=== PATIENT | female | born 1975 | race Caucasian/White ===

== ENCOUNTER 2017-03-23 15:36 | Observation (INO) | payer BC ==
--- NOTE | 2017-03-23 16:59 | ER Document Report ---
ED Medical Screen (RME) - General Chief Complaint: Chest Pain Stated Complaint: CHEST PAIN,RIGHT ARM NUMBNESS Time Seen by Provider: 03/23/17 16:22 Notes: pt states that she was in a normal state of health when she had the sudden onset of right-sided chest pain and headache. She states she also felt confused and was short of breath. TRAVEL OUTSIDE OF THE [place] IN LAST 30 DAYS: No - Related Data Allergies/Adverse Reactions: Penicillins Allergy (Verified 03/23/17 16:03) Past Medical History - Social History Frequency of alcohol use: None Drug Abuse: None Renal/ Medical History: Denies: Hx Peritoneal Dialysis Physical Exam - Vital signs Vitals: Temp Pulse Resp BP Pulse Ox 99.3 F 86 22 H 133/78 H 97 03/23/17 16:00 03/23/17 16:00 03/23/17 16:00 03/23/17 16:00 03/23/17 16:00 Course - Vital Signs Vital signs: Temp Pulse Resp BP Pulse Ox 99.3 F 86 22 H 133/78 H 97 03/23/17 16:00 03/23/17 16:00 03/23/17 16:00 03/23/17 16:00 03/23/17 16:00
[2017-03-23 17:18] LABS: ABSOLUTE BASOPHILS # (AUTO) 0.1 10^3/uL (0.0-0.2); ABSOLUTE EOSINOPHILS # (AUTO) 0.2 10^3/uL (0.0-0.6); ABSOLUTE MONOCYTES (AUTO) 0.1 10^3/uL (0.1-1.4); BASOPHILS % (AUTO) 1.1 % (0-2); EOSINOPHILS % (AUTO) 3.9 % (0-6); HEMOGLOBIN 13.4 g/dL (12.0-15.5); HGB HCT DIFFERENCE 1.2; LYMPHOCYTES % (AUTO) 37.3 % (13-45); MEAN CORPUSCULAR HEMOGLOBIN 31.3 pg (27.0-33.4); MEAN CORPUSCULAR HGB CONC 34.2 g/dL (32.0-36.0); MEAN CORPUSCULAR VOLUME 91 fl (80-97); MONOCYTES % (AUTO) 2.7 % (3-13); RED BLOOD COUNT 4.27 10^6/uL (3.72-5.28); RED CELL DISTRIBUTION WIDTH 12.4 % (11.5-14.0); WHITE BLOOD COUNT 5.4 10^3/uL (4.0-10.5)
[2017-03-23 17:26] LABS: APPEARANCE,URINE SLIGHTLY-CLOUDY; BILIRUBIN,URINE NEGATIVE (NEGATIVE); GLUCOSE, URINE NEGATIVE (NEGATIVE); KETONES,URINE NEGATIVE (NEGATIVE); LEUKOCYTE ESTERASE,URINE NEGATIVE (NEGATIVE); NITRITE,URINE NEGATIVE (NEGATIVE); PROTEIN,URINE NEGATIVE (NEGATIVE); URINE SPECIFIC GRAVITY 1.024; UROBILINOGEN,URINE NEGATIVE mg/dL (<2.0)
[2017-03-23 17:31] LABS: ALANINE AMINOTRANSFERASE 28 U/L (9-52); ALBUMIN 4.2 g/dL (3.5-5.0); ALKALINE PHOSPHATASE 80 U/L (38-126); ANION GAP 12 (5-19); ASPARTATE AMINO TRANSFERASE 15 U/L (14-36); BILIRUBIN,DIRECT 0.3 mg/dL (0.0-0.4); BILIRUBIN,TOTAL 0.3 mg/dL (0.2-1.3); BLOOD UREA NITROGEN 17 mg/dL (7-20); CALCIUM 9.4 mg/dL (8.4-10.2); CARBON DIOXIDE 30 mmol/L (22-30); CHLORIDE 103 mmol/L (98-107); GLUCOSE 120 mg/dL (75-110); POTASSIUM 4.5 mmol/L (3.6-5.0); SODIUM 144.9 mmol/L (137-145); TOTAL PROTEIN 7.5 g/dL (6.3-8.2)
--- NOTE | 2017-03-23 17:38 | ER Document Report ---
ED General - General Chief Complaint: Chest Pain Stated Complaint: CHEST PAIN,RIGHT ARM NUMBNESS Time Seen by Provider: 03/23/17 16:22 Mode of Arrival: Ambulatory Information source: Patient Notes: 41-year-old female with a history of goiter status post thyroidectomy, presenting to the emergency room after an episode of chest pain and shortness of breath. Patient states that the pain radiated to the right jaw and right arm. She denies any recent fevers, chills, nausea vomiting. TRAVEL OUTSIDE OF THE [place] IN LAST 30 DAYS: No - HPI Onset: Just prior to arrival Onset/Duration: Sudden Quality of pain: Dull Severity: Moderate Pain Level: 2 Associated symptoms: Chest pain, Nausea, Shortness of breath Exacerbated by: Denies Relieved by: Denies Similar symptoms previously: No Recently seen / treated by doctor: No - Related Data Allergies/Adverse Reactions: Penicillins Allergy (Verified 03/23/17 16:03) Past Medical History - General Information source: Patient - Social History Smoking Status: Never Smoker Cigarette use (# per day): No Chew tobacco use (# tins/day): No Frequency of alcohol use: None Drug Abuse: None Lives with: Family Family History: Reviewed & Not Pertinent Patient has suicidal ideation: No Patient has homicidal ideation: No - Past Medical History Cardiac Medical History: Reports: None Pulmonary Medical History: Reports: None Neurological Medical History: Reports: None Endocrine Medical History: Reports: Other - goiter Renal/ Medical History: Denies: Hx Peritoneal Dialysis Past Surgical History: Reports: Other - thyroid Review of Systems - Review of Systems Constitutional: denies: Chills, Fever EENT: No symptoms reported Cardiovascular: See HPI Respiratory: See HPI Gastrointestinal: No symptoms reported Genitourinary: No symptoms reported Female Genitourinary: No symptoms reported Musculoskeletal: No symptoms reported Skin: No symptoms reported Hematologic/Lymphatic: No symptoms reported Neurological/Psychological: No symptoms reported Physical Exam - Vital signs Vitals: Temp Pulse Resp BP Pulse Ox 99.3 F 86 22 H 133/78 H 97 03/23/17 16:00 03/23/17 16:00 03/23/17 16:00 03/23/17 16:00 03/23/17 16:00 Notes: Physical exam: GENERAL: 41-year-old female, alert and oriented 3, no acute distress HEAD: Atraumatic, normocephalic. EYES: Pupils equal round and reactive to light, extraocular movements intact, sclera anicteric, conjunctiva are normal. ENT: TMs normal, nares patent, oropharynx clear without exudates. Moist mucous membranes. NECK: Normal range of motion, supple without obvious mass or JVD. LUNGS: Breath sounds clear to auscultation bilaterally and equal. No wheezes rales or rhonchi. HEART: Regular rate and rhythm without murmurs, rubs or gallops. ABDOMEN: Soft, normoactive bowel sounds. No tenderness to palpation. No guarding, no rebound. No masses appreciated. EXTREMITIES: Normal range of motion, no pitting or edema. No clubbing or cyanosis. NEUROLOGICAL: Cranial nerves II through XII grossly intact. Normal speech, moving all extremities. PSYCH: Normal mood, normal affect. SKIN: Warm, Dry, normal turgor, no rashes or lesions noted. Course - Vital Signs Vital signs: Temp Pulse Resp BP Pulse Ox 99.3 F 86 22 H 133/78 H 97 03/23/17 16:00 03/23/17 16:00 03/23/17 16:00 03/23/17 16:00 03/23/17 16:00 - Laboratory Result Diagrams: 03/23/17 16:50 03/23/17 16:50 Laboratory results interpreted by me: 03/23/17 03/23/17 03/23/17 16:50 16:50 16:50 Monocytes % 2.7 L D-Dimer 0.75 H Glucose 120 H - Diagnostic Test Radiology reviewed: Image reviewed, Reports reviewed - CTA shows no pulmonary emboli - EKG Interpretation by Me EKG shows normal: Sinus rhythm Rate: Normal Rhythm: NSR - vrate 79, no acute st changes Discharge - Discharge Clinical Impression: Chest pain Qualifiers: Chest pain type: unspecified Qualified Code(s): R07.9 - Chest pain, unspecified Condition: Stable Disposition: ADMITTED OBSERVATION Admitting Provider: Hospitalist - Dr Ruvalcaba Unit Admitted: Telemetry
[2017-03-23] MEDS ORDERED: ASPIRIN 81 MG TABLET, CHEWABLE PO ONE (17:39)
[2017-03-23] MEDS ORDERED: METOCLOPRAMIDE HCL INJ/PF 10 MG/2 ML SDV IV ONE (18:30)
[2017-03-23] MEDS ORDERED: DIPHENHYDRAMINE HCL 50 MG/ML VIAL IV ONE (18:30)
--- NOTE | 2017-03-23 18:34 | RADIOLOGY REPORT (SQ) ---
EXAM DESCRIPTION: CT HEAD WITHOUT COMPLETED DATE/TIME: 03/23/2017 6:20 pm REASON FOR STUDY: ams/mari COMPARISON: None. TECHNIQUE: Axial images acquired through the brain without intravenous contrast. Images reviewed wi th bone, brain and subdural windows. Images stored on PACS. All CT scanners at this facility use dose modulation, iterative reconstruction, and/or weight based d osing when appropriate to reduce radiation dose to as low as reasonably achievable (ALARA). [facility]: Dose Right [facility]: CareDose [facility]: Dose Right [facility]: Teradose 4D [facility]: [employer] RADIATION DOSE: Up-to-date CT equipment and radiation dose reduction techniques were employed. CTDIv ol: 64.6 mGy. DLP: 1034 mGy-cm. mGy. LIMITATIONS: None. FINDINGS: VENTRICLES: Normal size and contour. CEREBRUM: No masses. No hemorrhage. No midline shift. No evidence for acute infarction. Normal gra y/white matter differentiation. No areas of low density in the white matter. CEREBELLUM: No masses. No hemorrhage. No alteration of density. No evidence for acute infarction. EXTRAAXIAL SPACES: No fluid collections. No masses. ORBITS AND GLOBE: No intra- or extraconal masses. Normal contour of globe without masses. CALVARIUM: No fracture. PARANASAL SINUSES: No fluid or mucosal thickening. SOFT TISSUES: No mass or hematoma. OTHER: No other significant finding. IMPRESSION: NORMAL BRAIN CT WITHOUT CONTRAST. COMMENT: Quality ID # [id number]: Final reports with documentation of one or more dose reduction techniques (e.g., Automated exposure control, adjustment of the mA and/or kV according to patient size, use of iterative reconstruction technique) TECHNICAL DOCUMENTATION: JOB ID: [id number]- All Rights Reserved
--- NOTE | 2017-03-23 18:38 | RADIOLOGY REPORT (SQ) ---
EXAM DESCRIPTION: CTA CHEST COMPLETED DATE/TIME: 03/23/2017 6:20 pm REASON FOR STUDY: cp COMPARISON: None. TECHNIQUE: CT scan of the chest performed using helical scanning technique with dynamic intravenous contrast injection. Images reviewed with lung, soft tissue and bone windows. Reconstructed coronal and sagittal MPR images reviewed. Additional 3 dimensional post-processing performed to develop Maximal Intensity Projection images (VT P). All images stored on PACS. All CT scanners at this facility use dose modulation, iterative reconstruction, and/or weight based d osing when appropriate to reduce radiation dose to as low as reasonably achievable (ALARA). [facility]: Dose Right [facility]: CareDose [facility]: Dose Right [facility]: Teradose 4D [facility]: [employer] CONTRAST TYPE AND DOSE: contrast/concentration: Isovue 370.00 mg/ml; Total Contrast Delivered: 82.0 ml; Total Saline Delivered: 70.0 ml Contrast bolus optimized for the pulmonary arteries. Not diagnostic for the aorta. RENAL FUNCTION: BUN 17, creatinine 0.80 RADIATION DOSE: Up-to-date CT equipment and radiation dose reduction techniques were employed. CTDIv ol: 29.8 - 33.1 mGy. DLP: 1185 mGy-cm. . LIMITATIONS: The timing of the bolus is inadequate for segmental and subsegmental evaluation. FINDINGS: LUNGS AND PLEURA: No masses, infiltrates, pneumothorax. No pleural effusions, calcificati ons. AORTA AND GREAT VESSELS: No aneurysm. Contrast bolus not optimized for the aorta. HEART: No pericardial effusion. No significant coronary artery calcifications. PULMONARY ARTERIES: No emboli visualized in the main pulmonary arteries or the segmental branches. HILAR AND MEDIASTINAL STRUCTURES: No identified masses or abnormal nodes. HARDWARE: None in the chest. UPPER ABDOMEN: No significant findings. Limited exam. THYROID AND OTHER SOFT TISSUES: No masses. No adenopathy. BONES: No acute or significant finding. 3D MIPS: Confirm above findings. OTHER: No other significant finding. IMPRESSION: No central pulmonary emboli. Due to timing of the contrast bolus smaller vessels are in adequately opacified. COMMENT: Quality ID # [id number]: Final reports with documentation of one or more dose reduction techniques (e.g., Automated exposure control, adjustment of the mA and/or kV according to patient size, use of iterative reconstruction technique) TECHNICAL DOCUMENTATION: JOB ID: [id number]- All Rights Reserved
[2017-03-23] MEDS ORDERED: ACETAMINOPHEN 325 MG TABLET PO PRN (18:42)
[2017-03-23] MEDS ORDERED: NORMAL SALINE 1000 ML 1,000 ML IV PRN (18:42)
[2017-03-23] MEDS ORDERED: ONDANSETRON HCL INJ/PF 4 MG/2 ML SDV IV PRN (18:50)
[2017-03-23] MEDS ORDERED: GLUCAGON,HUMAN RECOMB 1 MG INJ IM PRN (18:52)
[2017-03-23] MEDS ORDERED: INSULIN REG, HUMAN 100 UNIT/ML 3 ML VIAL (PYX) SUBCUT PRN (18:52)
[2017-03-23] MEDS ORDERED: DEXTROSE 50%-WATER 25 GM/50 ML DISP.SYRIN IV PRN ×2 (18:52)
[2017-03-23] MEDS ORDERED: DEXTROSE 40% GEL 15 GM TUBE PO PRN ×2 (18:52)
--- NOTE | 2017-03-23 19:04 | PDOC H&P ---
History of Present Illness Admission Date/PCP: 03/23/17 18:13 Patient complains of: Chest pain History of Present Illness: ROSIE PETERSON is a 41 year old female, history of bipolar depression morbid obesity borderline diabetes mellitus presents to the hospital with chest pain earlier while at work. 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 It is located in the precordium with associated numbness and tingling sensation on the right upper extremity as well as on the face. Patient started to develop headache as well. She was short of breath and hyperventilating. She felt anxious. She was given aspirin which partially relieves the symptoms. There is some sweating but no nausea or vomiting. There is some palpitation but no dizziness or lightheadedness. The patient was brought to the emergency room for evaluation. CT scan of the chest did not reveal any pulmonary embolism. Patient was then referred for observation. There is no cough, sinus congestion, sore throat nor pleurisy. Past Medical History Past Medical History: Medication reconciliation pending verification from the patient's pharmacist. Neurological Medical History: Reports: Migraine Endocrine Medical History: Reports: Hypothyroidism, Obesity, Other - Borderline diabetes mellitus Psychiatric Medical History: Reports: Bipolar Disorder, Depression Past Surgical History Past Surgical History: Reports: Cholecystectomy, Hysterectomy, Thyroidectomy, Other - Oophorectomy and surgical menopause, vaginal prolapse Social History Information Source: Patient Lives with: Family Smoking Status: Never Smoker Frequency of Alcohol Use: Occasional Hx Recreational Drug Use: No Drugs: None Family History Family History: Malignancy - Unknown type of cancer Parental Family History Reviewed: Yes Children Family History Reviewed: Yes Sibling(s) Family History Reviewed.: Yes Medication/Allergy Allergies/Adverse Reactions: Penicillins Allergy (Verified 03/23/17 16:03) Review of Systems Constitutional: PRESENT: chills, other - Cold intolerance. ABSENT: fever(s), headache(s), weight gain, weight loss Eyes: ABSENT: visual disturbances Ears: ABSENT: hearing changes Nose, Mouth, and Throat: ABSENT: mouth pain, sore throat Cardiovascular: PRESENT: chest pain, palpitations. ABSENT: dyspnea on exertion , edema, orthropnea Respiratory: PRESENT: dyspnea. ABSENT: cough, hemoptysis, sputum Gastrointestinal: PRESENT: bloating. ABSENT: abdominal pain, constipation, diarrhea, hematemesis, hematochezia, melena, nausea, vomiting Genitourinary: ABSENT: dysuria, hematuria Musculoskeletal: ABSENT: joint swelling Integumentary: ABSENT: pruritus, rash, wounds Neurological: ABSENT: abnormal gait, abnormal speech, confusion, dizziness, focal weakness, syncope Psychiatric: ABSENT: anxiety, depression, homidical ideation, suicidal ideation Endocrine: PRESENT: cold intolerance. ABSENT: heat intolerance, polydipsia, polyuria Hematologic/Lymphatic: ABSENT: easy bleeding, easy bruising Physical Exam Vital Signs: Temp Pulse Resp BP Pulse Ox 99.3 F 86 22 H 133/78 H 97 03/23/17 16:00 03/23/17 16:00 03/23/17 16:00 03/23/17 16:00 03/23/17 16:00 General appearance: PRESENT: no acute distress, morbidly obese Head exam: PRESENT: atraumatic, normocephalic Eye exam: PRESENT: conjunctiva pink, EOMI, PERRLA. ABSENT: scleral icterus Ear exam: PRESENT: normal external ear exam Mouth exam: PRESENT: moist, neck supple, tongue midline Neck exam: ABSENT: carotid bruit, JVD, lymphadenopathy, thyromegaly Respiratory exam: PRESENT: clear to auscultation mariah, unlabored. ABSENT: rales , rhonchi, wheezes Cardiovascular exam: PRESENT: RRR. ABSENT: diastolic murmur, rubs, systolic murmur Pulses: PRESENT: normal dorsalis pedis pul Vascular exam: PRESENT: normal capillary refill GI/Abdominal exam: PRESENT: normal bowel sounds, soft. ABSENT: distended - Obese, guarding, mass, organolmegaly, rebound, tenderness Rectal exam: PRESENT: deferred Extremities exam: PRESENT: full ROM. ABSENT: calf tenderness, clubbing, pedal edema Neurological exam: PRESENT: alert, awake, oriented to person, oriented to place , oriented to time, oriented to situation Psychiatric exam: PRESENT: appropriate affect, normal mood. ABSENT: homicidal ideation, suicidal ideation Skin exam: PRESENT: dry, intact, warm. ABSENT: cyanosis, rash Results Impressions: Head CT 03/23/17 16:41 IMPRESSION: NORMAL BRAIN CT WITHOUT CONTRAST. Chest/Abdomen CTA 03/23/17 17:48 IMPRESSION: No central pulmonary emboli. Due to timing of the contrast bolus smaller vessels are inadequately opacified. Assessment & Plan - Diagnosis (1) Chest pain Qualifiers: Chest pain type: unspecified Qualified Code(s): R07.9 - Chest pain, unspecified Is this a current diagnosis for this admission?: Yes (2) Hypothyroidism (acquired) Is this a current diagnosis for this admission?: Yes (3) Migraine headache Qualifiers: Migraine type: unspecified Status migrainosus presence: without status migrainosus Intractability: not intractable Qualified Code(s): G43.909 - Migraine, unspecified, not intractable, without status migrainosus Is this a current diagnosis for this admission?: Yes (4) Diabetes mellitus type 2 in obese Is this a current diagnosis for this admission?: Yes (5) Bipolar 1 disorder, depressed Is this a current diagnosis for this admission?: Yes - Time Time Spent: 50 to 70 Minutes Anticipated discharge: Home Within: within 24 hours - Plan Summary Plan Summary: The patient will be admitted to observation. We will obtain serial cardiac enzymes 3. I will put the patient on aspirin. I will hold any nitroglycerin due to current headaches. We will give as needed Ultram for pain control. Patient had a recent stress test done that was negative we will therefore consult cardiology for further evaluation. DVT prophylaxis with Lovenox will be placed. Supplemental oxygen will be given. Further testing depends on the initial evaluations outlined above.
[2017-03-23] MEDS ORDERED: LIDOCAINE 2% VISCOUS SOLN 20 ML UDCUP PO ONE (19:15)
[2017-03-23] MEDS ORDERED: MAG HYDROX/AL HYDROX/SIMETH SUSP 30 ML UDCUP PO ONE (19:15)
[2017-03-23] MEDS ORDERED: METOCLOPRAMIDE HCL ORAL SOLN 10 MG/10 ML UDCUP PO ONE (19:15)
--- NOTE | 2017-03-23 19:52 | EKG REPORT ---
SEVERITY:- NORMAL ECG - SINUS RHYTHM : Confirmed by: Chay Frazier MD 23-Mar-2017 19:51:17
[2017-03-23] MEDS: ASPIRIN 81 MG TABLET, CHEWABLE PO SCH (21:27)
--- NOTE | 2017-03-23 21:54 | PDOC CONSULTATION ---
Consultation Consult Date: 03/23/17 Attending physician:: CONCHA WALLACE Consult reason:: Chest pain History of Present Illness Admission Date/PCP: 03/23/17 18:42 Patient complains of: Chest pain History of Present Illness: ROSIE PETERSON is a 41 year old female, history of bipolar depression morbid obesity borderline diabetes mellitus presents to the hospital with chest pain earlier while at work. 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 It is located in the precordium with associated numbness and tingling sensation on the right upper extremity as well as on the face. Patient started to develop headache as well. She was short of breath and hyperventilating. She felt anxious. She was given aspirin which partially relieves the symptoms. There is some sweating but no nausea or vomiting. There is some palpitation but no dizziness or lightheadedness. The patient was brought to the emergency room for evaluation. CT scan of the chest did not reveal any pulmonary embolism. Patient was subsequently admitted for further evaluation. There is no cough, sinus congestion, sore throat nor pleurisy. Patient describes having a stress test about 6 months ago which was unremarkable. Patient gives history of anxiety panic disorder. Patient however claims that recent chest pain is unlike that. Patient has also noted some joint discomfort and some extremity swelling. This history was reviewed, supplemented and confirmed. Patient's mother in the room who give additional information. Patient does describe significant problems with sleep. She has difficulty falling asleep and staying asleep. Patient has also noted daytime fatigue and tiredness. Past Medical History Cardiac Medical History: Reports: None Pulmonary Medical History: Reports: None Neurological Medical History: Reports: None, Migraine Endocrine Medical History: Reports: Hypothyroidism, Obesity, Other - goiter Psychiatric Medical History: Reports: Bipolar Disorder, Depression - Anxiety Past Surgical History Past Surgical History: Reports: Cholecystectomy, Hysterectomy, Thyroidectomy, Other - thyroid Social History Information Source: Patient Lives with: Family Smoking Status: Never Smoker Frequency of Alcohol Use: Occasional Hx Recreational Drug Use: No Drugs: None Hx Prescription Drug Abuse: No - Advance Directive Resuscitation Status: Full Code Surrogate healthcare decision maker:: Patient's mother is the surrogate decision-maker Family History Family History: Hypertension Parental Family History Reviewed: Yes Children Family History Reviewed: Yes Sibling(s) Family History Reviewed.: Yes Medication/Allergy Home Medications: Aripiprazole [Abilify 2 mg Tablet] 2 mg PO QAM 03/23/17 Estradiol [Estrace] 1.5 mg PO DAILY 03/23/17 Fluoxetine HCl [Prozac 20 mg Capsule] 40 mg PO DAILY 03/23/17 Levothyroxine Sodium [Synthroid] 200 mcg PO DAILY 03/23/17 Liothyronine Sodium [Cytomel 25 Mcg Tablet] 25 mcg PO DAILY 03/23/17 Metformin HCl [Glucophage] 1,000 mg PO BID 03/23/17 Pregabalin [Lyrica 50 mg Capsule] 50 mg PO Q8 03/23/17 Sumatriptan Succinate [Imitrex 50 mg Tablet] 50 mg PO DAILYP PRN 03/23/17 Topiramate [Topamax 100 mg Tablet] 150 mg PO Q12 03/23/17 Trazodone HCl [Desyrel 50 mg Tablet] 100 mg PO HSP PRN 03/23/17 Aspirin 81 mg PO DAILY #30 tab.chew 03/25/17 Tramadol HCl [Ultram 50 mg Tablet] 50 mg PO Q6HP PRN #20 tablet 03/25/17 Allergies/Adverse Reactions: Penicillins Allergy (Verified 03/23/17 16:03) Review of Systems Review of Systems: Please see history of present illness and past medical history as wall. Constitutional: No fever or chills reported. Head : No recent chronic headaches, recent head injury. Eyes: No recent eye pain, diplopia, redness, discharge, acute visual changes. Ears: No recent chronic ear pain, acute hearing loss, ear discharge. Oral cavity: No recent ulcerations, bleeding, oral cavity discomfort. Neck: No recent acute neck pain reported. Hematologic: No recent easy bruising or bleeding or hematologic malignancy reported. Lymphatic: No recent lymphatic malignancy, chronic lymphadenopathy reported yet Cardiovascular system review: See history of present illness. Respiratory system review: No recent chronic cough, hemoptysis, blood clots in the lungs reported. Mild Shortness of breath on exertion Gastrointestinal system review: Negative for any recent acute or chronic abdominal pain, hematemesis, melena, recent change in bowel habits. Positive for reflux Genitourinary system review: No recent acute or chronic hematuria, flank pain, UTI etc. reported. Skin system review: Negative for any recent abnormal bruising, no rash, no pruritus reported. Neurologic: No prior history of strokes, mini strokes, seizure disorder. Psychologic: Positive for mood disorder, bipolar disorder and anxiety panic disorder. Musculoskeletal: Minor aches and pains reported. Patient describes minor joint swellings and stiffness. Endocrine: No recent polyuria, polydipsia, recent heat or cold intolerance. Physical Exam Vital Signs: Temp Pulse Resp BP Pulse Ox 99.3 F 87 16 118/64 100 03/23/17 20:05 03/23/17 20:05 03/23/17 20:05 03/23/17 20:05 03/23/17 20:05 Intake & Output 03/22/17 03/23/17 03/24/17 06:59 06:59 06:59 Weight 109.5 kg Exam: GENERAL: well-nourished and in no acute distress. Alert and oriented x3 HEAD: Atraumatic, normocephalic. EYES: Pupils equal round and reactive to light, extraocular movements intact, sclera anicteric, conjunctiva are normal. ENT: TMs normal, nares patent, oropharynx clear without exudates. Moist mucous membranes. No oral ulcerations or bleeding gums noted NECK: supple without lymphadenopathy. Trachea is central. No cervical or axillary lymphadenopathy noted. Carotids are 2+, JVD WNL LUNGS: Respiration seems nonlabored, no significant accessory muscle action noted. Breath sounds clear to auscultation bilaterally and equal noted. No wheezes rales or rhonchi noted. No significant dullness noted on percussion. CHEST: Palpation of the chest wall shows mild diffuse chest wall tenderness. No other significant abnormalities noted. HEART: [place] [employer], No PSH, 1/6 RADHA aortic area, 1/6 membreno systolic murmur mitral area, no rubs, no gallops. ABDOMEN: Soft, no significant tenderness appreciated, normoactive bowel sounds. No guarding, no rebound. No rigidity noted . No masses appreciated. EXTREMITIES: Pedal pulses are 1-2+, no calf tenderness noted. No clubbing or cyanosis.trace to 1+ pedal edema noted NEUROLOGICAL: Focused neurological exam showed no significant neurologic deficit. Normal speech, no focal weakness appreciated. PSYCH: Normal mood, normal affect. Judgment and insight within normal limits. SKIN: No significant ecchymosis, rash, ulcerations or signs of pruritus noted. MUSCULOSKELETAL EXAM: No significant joint swelling noted. Results EKG Comments: Twelve-lead EKG shows sinus rhythm, no acute ST-T wave changes noted. Impressions: Head CT 03/23/17 16:41 IMPRESSION: NORMAL BRAIN CT WITHOUT CONTRAST. Chest/Abdomen CTA 03/23/17 17:48 IMPRESSION: No central pulmonary emboli. Due to timing of the contrast bolus smaller vessels are inadequately opacified. Assessment & Plan - Diagnosis (1) Chest pain Qualifiers: Chest pain type: unspecified Qualified Code(s): R07.9 - Chest pain, unspecified Is this a current diagnosis for this admission?: Yes (2) Diabetes mellitus type 2 in obese Is this a current diagnosis for this admission?: Yes (3) Hypothyroidism (acquired) Is this a current diagnosis for this admission?: Yes (4) Migraine headache Qualifiers: Migraine type: unspecified Status migrainosus presence: without status migrainosus Intractability: not intractable Qualified Code(s): G43.909 - Migraine, unspecified, not intractable, without status migrainosus Is this a current diagnosis for this admission?: Yes (5) Sleep disorder Is this a current diagnosis for this admission?: Yes (6) Obesity Qualifiers: Obesity type: unspecified obesity type Body mass index: unspecified BMI Is this a current diagnosis for this admission?: Yes - Notes Notes: Chest pain: So far cardiac enzymes and EKGs has been relatively unremarkable. Patient had a stress test 6 months ago which was negative. Will order a 2D echocardiogram. May consider CTA of the chest to rule out pulmonary embolism and other causes of chest pain. Patient most likely has either musculoskeletal pain or chest discomfort from anxiety panic disorder. Diabetes: Recommend good control of blood sugar. However should avoid any hypoglycemia. Patient being expertly managed by primary care Melyssa. Hypothyroidism: Continue replacement therapy. Migraine headaches: Currently stable. Discussed that she might have underlying sleep apnea syndrome and might consider evaluation for it. Sleep disorder: Patient does give history of difficulty falling asleep, staying asleep and also has history of snoring and daytime sleepiness. Patient discussed that she might have patient was advised to pursue a sleep study as an outpatient. Obesity: Patient encouraged in regular walking program and weight loss. - Time Time Spent: 30 to 50 Minutes - CODE STATUS was discussed, patient remains full code. Surrogate decision-maker unchanged. Multiple medical problems were addressed. More than 50% of the time spent coordinating care, discussing management plans with involved caregivers. Management plans discussed with involved personnels. Medical decision making was of moderate to high complexity , patient's has multiple comorbidities. Medications reviewed and adjusted accordingly: Yes
[2017-03-24 00:20] LABS: CREATINE KINASE MB < 0.22 ng/mL (<4.55); TROPONIN I < 0.012 ng/mL
[2017-03-24] MEDS: TRAMADOL HCL 50 MG TABLET PO PRN ×3 (03:50→22:35)
[2017-03-24 04:04] LABS: APPEARANCE,URINE CLEAR; BILIRUBIN,URINE NEGATIVE (NEGATIVE); GLUCOSE, URINE NEGATIVE (NEGATIVE); KETONES,URINE NEGATIVE (NEGATIVE); LEUKOCYTE ESTERASE,URINE NEGATIVE (NEGATIVE); NITRITE,URINE NEGATIVE (NEGATIVE); PROTEIN,URINE NEGATIVE (NEGATIVE); URINE SPECIFIC GRAVITY 1.059; UROBILINOGEN,URINE NEGATIVE mg/dL (<2.0)
[2017-03-24 06:39] LABS: CREATINE KINASE MB < 0.22 ng/mL (<4.55); TROPONIN I < 0.012 ng/mL
[2017-03-24] MEDS: LANSOPRAZOLE 30 MG TAB.RAP.DR PO SCH ×2 (06:42→16:59)
[2017-03-24] MEDS: ENOXAPARIN SODIUM INJ 40 MG/0.4 ML DISP.SYRIN SUBCUT SCH (09:08)
[2017-03-24] MEDS: DOCUSATE SODIUM 100 MG CAPSULE PO SCH ×2 (09:08→16:59)
[2017-03-24 12:28] LABS: CREATINE KINASE MB < 0.22 ng/mL (<4.55); TROPONIN I < 0.012 ng/mL
[2017-03-24] MEDS ORDERED: ONDANSETRON HCL INJ/PF 4 MG/2 ML SDV IV PRN (15:30)
[2017-03-24] MEDS ORDERED: RIZATRIPTAN 10 MG PO ONE (17:00)
--- NOTE | 2017-03-24 18:20 | PDOC PROGRESS REPORT ---
Subjective Progress Note for:: 03/24/17 Subjective:: Patient complains of edema, aches and pain on the hand, migraine headaches, but no nausea nor vomiting. No dysuria urgency or frequency. No chest pain this time. No shortness of breath. Physical Exam Vital Signs: Temp Pulse Resp BP Pulse Ox 98.7 F 69 17 120/63 100 03/24/17 15:41 03/24/17 15:41 03/24/17 15:41 03/24/17 15:41 03/24/17 15:41 Intake & Output 03/23/17 03/24/17 03/25/17 06:59 06:59 06:59 Intake Total 480 830 Output Total 300 900 Balance 180 -70 Weight 109.5 kg General appearance: PRESENT: no acute distress, morbidly obese Head exam: PRESENT: normocephalic Eye exam: PRESENT: EOMI Mouth exam: PRESENT: moist, neck supple Neck exam: ABSENT: JVD Extremities exam: PRESENT: other - Nonpitting edema. ABSENT: clubbing Neurological exam: PRESENT: alert, awake, oriented to person, oriented to place , oriented to time, oriented to situation Skin exam: PRESENT: dry, warm. ABSENT: cyanosis Results Laboratory Results: 03/24/17 03/24/17 03/24/17 03:30 05:33 11:38 TSH 0.32 L Free T4 1.14 Urine Color YELLOW Urine Appearance CLEAR Urine pH 5.0 Ur Specific Paulina 1.059 Urine Protein NEGATIVE Urine Glucose (UA) NEGATIVE Urine Ketones NEGATIVE Urine Blood NEGATIVE Urine Nitrite NEGATIVE Ur Leukocyte Esterase NEGATIVE Urine WBC (Auto) 2 Urine RBC (Auto) 3 03/23/17 03/23/17 03/24/17 23:24 23:24 05:33 Creatine Kinase 27 L 22 L CK-MB (CK-2) < 0.22 Troponin I < 0.012 03/24/17 03/24/17 03/24/17 05:33 11:38 11:38 Creatine Kinase 25 L CK-MB (CK-2) < 0.22 < 0.22 Troponin I < 0.012 < 0.012 Impressions: Head CT 03/23/17 16:41 IMPRESSION: NORMAL BRAIN CT WITHOUT CONTRAST. Chest/Abdomen CTA 03/23/17 17:48 IMPRESSION: No central pulmonary emboli. Due to timing of the contrast bolus smaller vessels are inadequately opacified. Assessment & Plan - Diagnosis (1) Chest pain Qualifiers: Chest pain type: unspecified Qualified Code(s): R07.9 - Chest pain, unspecified Is this a current diagnosis for this admission?: Yes (2) Hypothyroidism (acquired) Is this a current diagnosis for this admission?: Yes (3) Migraine headache Qualifiers: Migraine type: unspecified Status migrainosus presence: without status migrainosus Intractability: not intractable Qualified Code(s): G43.909 - Migraine, unspecified, not intractable, without status migrainosus Is this a current diagnosis for this admission?: Yes (4) Diabetes mellitus type 2 in obese Is this a current diagnosis for this admission?: Yes (5) Bipolar 1 disorder, depressed Is this a current diagnosis for this admission?: Yes - Time Time Spent with patient: 25-34 minutes - Plan Summary Plan Summary: We will check rheumatoid factor as well as MICHELLE. We will also do free T4 as TSH low. We will also obtain a CT scan of the brain for the headache. Awaiting echocardiogram.
[2017-03-24] MEDS: ASPIRIN 81 MG TABLET, CHEWABLE PO SCH (22:35)
[2017-03-25] MEDS: LANSOPRAZOLE 30 MG TAB.RAP.DR PO SCH ×2 (06:19→16:35)
[2017-03-25] MEDS: ENOXAPARIN SODIUM INJ 40 MG/0.4 ML DISP.SYRIN SUBCUT SCH (09:39)
[2017-03-25] MEDS: DOCUSATE SODIUM 100 MG CAPSULE PO SCH ×2 (09:39→17:35)
--- NOTE | 2017-03-25 15:43 | RADIOLOGY REPORT (SQ) ---
EXAM DESCRIPTION: VENOUS UNILATERAL LOWER COMPLETED DATE/TIME: 03/25/2017 3:33 pm REASON FOR STUDY: left leg pain, DVT COMPARISON: None. TECHNIQUE: Dynamic and static moreno scale and color images acquired of the left leg venous system. Se lected spectral images acquired with additional compression and augmentation maneuvers. The contralat eral common femoral vein and saphenofemoral junction were also imaged. Images stored on PACS. LIMITATIONS: None. FINDINGS: COMMON FEMORAL: Normal phasicity, compression and augmentation. No visualized echogenic ma terial on moreno scale. No defects on color images. FEMORAL: Normal compression and augmentation. No visualized echogenic material on moreno scale. No defe cts on color images. POPLITEAL: Normal compression, augmentation. No visualized echogenic material on moreno scale. No defec ts on color images. CALF VESSELS: Normal compression, augmentation. No visualized echogenic material on moreno scale. No de fects on color images. GSV and SSV: Normal compression, augmentation. No visualized echogenic material on moreno scale. No def ects on color images. ANY DEEP VENOUS INSUFFICIENCY: Not evaluated. ANY EVIDENCE OF POPLITEAL CYST: No. OTHER: No other significant finding. CONTRALATERAL COMMON FEMORAL VEIN AND SAPHENOFEMORAL JUNCTION: Normal phasicity, compression and augmentation. No visualized echogenic material on moreno scale. No de fects on color images. IMPRESSION: NO EVIDENCE OF DVT OR SVT IN THE LEFT LEG. TECHNICAL DOCUMENTATION: JOB ID: [id number] [employer]- All Rights Reserved
--- NOTE | 2017-03-25 16:58 | PDOC DISCHARGE SUMMARY ---
General - Admit/Disc Date/PCP Admission Date/Primary Care Provider: 03/23/17 18:42 Discharge Date: 03/25/17 - Discharge Diagnosis (1) Chest pain Is this a current diagnosis for this admission?: Yes (2) Hypothyroidism (acquired) Is this a current diagnosis for this admission?: Yes (3) Migraine headache Is this a current diagnosis for this admission?: Yes (4) Diabetes mellitus type 2 in obese Is this a current diagnosis for this admission?: Yes (5) Bipolar 1 disorder, depressed Is this a current diagnosis for this admission?: Yes - Additional Information Discharge Diet: Cardiac - Low-fat low-salt Discharge Activity: Activity As Tolerated, Balance Activity w/Rest Home Medications: Aripiprazole [Abilify 2 mg Tablet] 2 mg PO QAM 03/23/17 Estradiol [Estrace] 1.5 mg PO DAILY 03/23/17 Fluoxetine HCl [Prozac 20 mg Capsule] 40 mg PO DAILY 03/23/17 Levothyroxine Sodium [Synthroid] 200 mcg PO DAILY 03/23/17 Liothyronine Sodium [Cytomel 25 Mcg Tablet] 25 mcg PO DAILY 03/23/17 Metformin HCl [Glucophage] 1,000 mg PO BID 03/23/17 Pregabalin [Lyrica 50 mg Capsule] 50 mg PO Q8 03/23/17 Sumatriptan Succinate [Imitrex 50 mg Tablet] 50 mg PO DAILYP PRN 03/23/17 Topiramate [Topamax 100 mg Tablet] 150 mg PO Q12 03/23/17 Trazodone HCl [Desyrel 50 mg Tablet] 100 mg PO HSP PRN 03/23/17 Aspirin 81 mg PO DAILY #30 tab.chew 03/25/17 Tramadol HCl [Ultram 50 mg Tablet] 50 mg PO Q6HP PRN #20 tablet 03/25/17 Additional Information: Return to the emergency room if symptoms recurs History of Present Illness Patient complains of: Chest pain History of Present Illness: ROSIE PETERSON is a 41 year old female, history of bipolar depression morbid obesity borderline diabetes mellitus presents to the hospital with chest pain earlier while at work. 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 It is located in the precordium with associated numbness and tingling sensation on the right upper extremity as well as on the face. Patient started to develop headache as well. She was short of breath and hyperventilating. She felt anxious. She was given aspirin which partially relieves the symptoms. There is some sweating but no nausea or vomiting. There is some palpitation but no dizziness or lightheadedness. The patient was brought to the emergency room for evaluation. CT scan of the chest did not reveal any pulmonary embolism. Patient was then referred for observation. There is no cough, sinus congestion, sore throat nor pleurisy. Hospital Course Hospital Course: The patient was admitted to observation with telemetry. No significant arrhythmias were noted. Serial cardiac enzymes were obtained and they were negative. Cardiology was consulted. Reportedly patient's symptoms may be related to anxiety. Patient had an echocardiogram that was reportedly normal. She also had a CT angiogram of the chest showing no pulmonary embolism. She did complain of an episode of leg pain of which venous Doppler was negative for DVT. The patient was placed on aspirin. She was given analgesics for pain. She had an episode of migraine headache which Maxalt was given and it has resolved. CT of the brain was negative. The rest of the hospital stay is unremarkable. She was eventually discharged home improved with instructions to return to the emergency room if symptoms recur. Physical Exam Vital Signs: Temp Pulse Resp BP Pulse Ox 98.7 F 74 19 137/78 H 99 03/25/17 15:41 03/25/17 15:41 03/25/17 15:41 03/25/17 15:41 03/25/17 15:41 Intake & Output 03/24/17 03/25/17 03/26/17 06:59 06:59 06:59 Intake Total 480 1475 210 Output Total 300 1600 800 Balance 180 -125 -590 Weight 109.5 kg 112.5 kg General appearance: PRESENT: no acute distress, cooperative, obese Head exam: PRESENT: normocephalic Eye exam: PRESENT: EOMI Mouth exam: PRESENT: moist, neck supple Neck exam: ABSENT: JVD Respiratory exam: PRESENT: clear to auscultation mariah Cardiovascular exam: PRESENT: RRR. ABSENT: gallop GI/Abdominal exam: PRESENT: soft. ABSENT: distended, tenderness Extremities exam: PRESENT: other - Nonpitting edema Neurological exam: PRESENT: alert, awake, oriented to person, oriented to place , oriented to time, oriented to situation Skin exam: PRESENT: dry, warm. ABSENT: cyanosis Results Laboratory Results: 03/23/17 03/23/17 03/24/17 23:24 23:24 05:33 Creatine Kinase 27 L 22 L CK-MB (CK-2) < 0.22 Troponin I < 0.012 03/24/17 03/24/17 03/24/17 05:33 11:38 11:38 Creatine Kinase 25 L CK-MB (CK-2) < 0.22 < 0.22 Troponin I < 0.012 < 0.012 Impressions: Head CT 03/23/17 16:41 IMPRESSION: NORMAL BRAIN CT WITHOUT CONTRAST. Chest/Abdomen CTA 03/23/17 17:48 IMPRESSION: No central pulmonary emboli. Due to timing of the contrast bolus smaller vessels are inadequately opacified. Venous Doppler Study 03/25/17 00:00 IMPRESSION: NO EVIDENCE OF DVT OR SVT IN THE LEFT LEG. Qualifiers PATEINT BEING DISCHARGED WITH ANY OF THE FOLLOWING DIAGNOSIS?: No Plan Discharge Plan: Follow-up with primary care physician in 1 week. Time Spent: Less than 30 Minutes
[2017-03-25 17:01] VITALS: BP 102/58
--- NOTE | 2017-03-25 21:24 | PDOC PROGRESS REPORT ---
Subjective Progress Note for:: 03/24/17 Subjective:: Patient seems to be doing better with gradual improvement. Still describing intermittent chest arm or neck discomfort, however patient very vague about it.. Patient denying any PND, orthopnea. Patient denied any sustained palpitations, dizziness, syncope, near syncope. Patient denying any fever chills. Patient denying any other significant discomfort. Patient has noted some nonspecific joint discomfort and claims that she is swollen up. Patient is maintaining sinus rhythm. Review of systems: Rest review of systems negative. Medications: Medications have been reviewed. Physical Exam Vital Signs: Temp Pulse Resp BP Pulse Ox 98.6 F 78 18 115/59 L 99 03/24/17 20:10 03/24/17 20:10 03/24/17 20:10 03/24/17 20:10 03/24/17 20:10 Intake & Output 03/23/17 03/24/17 03/25/17 06:59 06:59 06:59 Intake Total 480 990 Output Total 300 900 Balance 180 90 Weight 109.5 kg Exam: GENERAL: well-nourished and in no acute distress. Alert and oriented x3 HEAD: Atraumatic, normocephalic. EYES: Pupils equal round and reactive to light, extraocular movements intact, sclera anicteric, conjunctiva are normal. ENT: TMs normal, nares patent, oropharynx clear without exudates. Moist mucous membranes. No oral ulcerations or bleeding gums noted NECK: supple without lymphadenopathy. Trachea is central. No cervical or axillary lymphadenopathy noted. Carotids are 2+, JVD WNL LUNGS: Respiration seems nonlabored, no significant accessory muscle action noted. Breath sounds clear to auscultation bilaterally and equal noted. No wheezes rales or rhonchi noted. No significant dullness noted on percussion. CHEST: Palpation of the chest wall shows chest wall tenderness. No other significant abnormalities noted. 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 ABDOMEN: Soft, no significant tenderness appreciated, normoactive bowel sounds. No guarding, no rebound. No rigidity noted . No masses appreciated. EXTREMITIES: Pedal pulses are 1-2+, no calf tenderness noted. No clubbing or cyanosis.trace pedal edema noted NEUROLOGICAL: Focused neurological exam showed no significant neurologic deficit. Normal speech, no focal weakness appreciated. PSYCH: Normal mood, normal affect. Judgment and insight within normal limits. SKIN: No significant ecchymosis, rash, ulcerations or signs of pruritus noted. MUSCULOSKELETAL EXAM: No significant joint swelling noted. Results Laboratory Results: 03/24/17 03/24/17 03/24/17 03:30 05:33 11:38 TSH 0.32 L Free T4 1.14 Urine Color YELLOW Urine Appearance CLEAR Urine pH 5.0 Ur Specific [place] 1.059 Urine Protein NEGATIVE Urine Glucose (UA) NEGATIVE Urine Ketones NEGATIVE Urine Blood NEGATIVE Urine Nitrite NEGATIVE Ur Leukocyte Esterase NEGATIVE Urine WBC (Auto) 2 Urine RBC (Auto) 3 03/23/17 03/23/17 03/24/17 23:24 23:24 05:33 Creatine Kinase 27 L 22 L CK-MB (CK-2) < 0.22 Troponin I < 0.012 03/24/17 03/24/17 03/24/17 05:33 11:38 11:38 Creatine Kinase 25 L CK-MB (CK-2) < 0.22 < 0.22 Troponin I < 0.012 < 0.012 Impressions: Head CT 03/23/17 16:41 IMPRESSION: NORMAL BRAIN CT WITHOUT CONTRAST. Chest/Abdomen CTA 03/23/17 17:48 IMPRESSION: No central pulmonary emboli. Due to timing of the contrast bolus smaller vessels are inadequately opacified. Assessment & Plan - Diagnosis (1) Chest pain Qualifiers: Chest pain type: unspecified Qualified Code(s): R07.9 - Chest pain, unspecified Is this a current diagnosis for this admission?: Yes (2) Diabetes mellitus type 2 in obese Is this a current diagnosis for this admission?: Yes (3) Hypothyroidism (acquired) Is this a current diagnosis for this admission?: Yes (4) Migraine headache Qualifiers: Migraine type: unspecified Status migrainosus presence: without status migrainosus Intractability: not intractable Qualified Code(s): G43.909 - Migraine, unspecified, not intractable, without status migrainosus Is this a current diagnosis for this admission?: Yes (5) Sleep disorder Is this a current diagnosis for this admission?: Yes - Notes Notes: Chest pain: So far cardiac enzymes and EKGs has been relatively unremarkable. Patient had a stress test 6 months ago which was negative. 2D echo results were discussed. Patient noted to have normal LVEF. CTA chest results discussed. No coronary calcification noted. No definite PE noted. Patient most likely has either musculoskeletal pain or chest discomfort from anxiety panic disorder. Patient encouraged to ambulate. Diabetes: Recommend good control of blood sugar. However should avoid any hypoglycemia. Patient being expertly managed by primary care MManan Hypothyroidism: Continue replacement therapy. Migraine headaches: Currently stable. Discussed that she might have underlying sleep apnea syndrome and might consider evaluation for it. Sleep disorder: Patient does give history of difficulty falling asleep, staying asleep and also has history of snoring and daytime sleepiness. Patient discussed that she might have patient was advised to pursue a sleep study as an outpatient. Obesity: Patient encouraged in regular walking program and weight loss. - Time Time with patient: Greater than 35 minutes - CODE STATUS was discussed, patient remains full code. Surrogate decision-maker unchanged. Multiple medical problems were addressed. More than 50% of the time spent coordinating care, discussing management plans with involved caregivers. Management plans discussed with involved personnels. Medical decision making was of moderate to high complexity, patient's has multiple comorbidities. Medications reviewed and adjusted accordingly: Yes
--- NOTE | 2017-03-25 21:24 | PDOC PROGRESS REPORT ---
Subjective Progress Note for:: 03/25/17 Subjective:: Patient is stable. So far all evaluations has been negative. Patient has been encouraged to ambulate. Discussed with hospitalist that it is safe for patient to be discharged and follow-up as an outpatient. Patient can follow-up with me. Patient questions were answered. Patient informed that best guess is that she has noncardiac chest pain mostly related to anxiety panic disorder with some musculoskeletal overlay. Physical Exam Vital Signs: Temp Pulse Resp BP Pulse Ox 98.7 F 74 19 102/58 L 99 03/25/17 16:56 03/25/17 16:56 03/25/17 16:56 03/25/17 16:56 03/25/17 16:56 Intake & Output 03/24/17 03/25/17 03/26/17 06:59 06:59 06:59 Intake Total 480 1475 213 Output Total 300 1600 800 Balance 180 -125 -587 Weight 109.5 kg 112.5 kg Exam: GENERAL: well-nourished and in no acute distress. Alert and oriented x3 HEAD: Atraumatic, normocephalic. EYES: Pupils equal round and reactive to light, extraocular movements intact, sclera anicteric, conjunctiva are normal. ENT: TMs normal, nares patent, oropharynx clear without exudates. Moist mucous membranes. No oral ulcerations or bleeding gums noted NECK: supple without lymphadenopathy. Trachea is central. No cervical or axillary lymphadenopathy noted. Carotids are 2+, JVD WNL LUNGS: Respiration seems nonlabored, no significant accessory muscle action noted. Breath sounds clear to auscultation bilaterally and equal noted. No wheezes rales or rhonchi noted. No significant dullness noted on percussion. CHEST: Palpation of the chest wall shows mild chest wall tenderness. No other significant abnormalities noted. 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 ABDOMEN: Soft, no significant tenderness appreciated, normoactive bowel sounds. No guarding, no rebound. No rigidity noted . No masses appreciated. EXTREMITIES: Pedal pulses are 1-2+, no calf tenderness noted. No clubbing or cyanosis.trace edema noted NEUROLOGICAL: Focused neurological exam showed no significant neurologic deficit. Normal speech, no focal weakness appreciated. PSYCH: Normal mood, normal affect. Judgment and insight within normal limits. SKIN: No significant ecchymosis, rash, ulcerations or signs of pruritus noted. MUSCULOSKELETAL EXAM: No significant joint swelling noted. Results Laboratory Results: 03/23/17 03/23/17 03/24/17 23:24 23:24 05:33 Creatine Kinase 27 L 22 L CK-MB (CK-2) < 0.22 Troponin I < 0.012 03/24/17 03/24/17 03/24/17 05:33 11:38 11:38 Creatine Kinase 25 L CK-MB (CK-2) < 0.22 < 0.22 Troponin I < 0.012 < 0.012 Impressions: Head CT 03/23/17 16:41 IMPRESSION: NORMAL BRAIN CT WITHOUT CONTRAST. Chest/Abdomen CTA 03/23/17 17:48 IMPRESSION: No central pulmonary emboli. Due to timing of the contrast bolus smaller vessels are inadequately opacified. Venous Doppler Study 03/25/17 00:00 IMPRESSION: NO EVIDENCE OF DVT OR SVT IN THE LEFT LEG. Assessment & Plan - Diagnosis (1) Chest pain Qualifiers: Chest pain type: unspecified Qualified Code(s): R07.9 - Chest pain, unspecified Is this a current diagnosis for this admission?: Yes (2) Diabetes mellitus type 2 in obese Is this a current diagnosis for this admission?: Yes (3) Hypothyroidism (acquired) Is this a current diagnosis for this admission?: Yes (4) Migraine headache Qualifiers: Migraine type: unspecified Status migrainosus presence: without status migrainosus Intractability: not intractable Qualified Code(s): G43.909 - Migraine, unspecified, not intractable, without status migrainosus Is this a current diagnosis for this admission?: Yes (5) Sleep disorder Is this a current diagnosis for this admission?: Yes - Notes Notes: Chest pain: So far cardiac enzymes and EKGs has been relatively unremarkable. Patient had a stress test 6 months ago which was negative. All evaluation so far has been negative. Patient most likely has either musculoskeletal pain or chest discomfort from anxiety panic disorder. Patient was reassured. 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 2D echo results, CTA results, venous duplex results were discussed. Diabetes: Recommend good control of blood sugar. However should avoid any hypoglycemia. Patient being expertly managed by primary care Erickson Hypothyroidism: Continue replacement therapy. Migraine headaches: Currently stable. Discussed that she might have underlying sleep apnea syndrome and might consider evaluation for it. Sleep disorder: Patient does give history of difficulty falling asleep, staying asleep and also has history of snoring and daytime sleepiness. Patient discussed that she might have patient was advised to pursue a sleep study as an outpatient. Obesity: Patient encouraged in regular walking program and weight loss. - Time Time with patient: 15-25 minutes - CODE STATUS was discussed, patient remains full code. Surrogate decision-maker unchanged. Multiple medical problems were addressed. More than 50% of the time spent coordinating care, discussing management plans with involved caregivers. Management plans discussed with involved personnels. Medical decision making was of moderate to high complexity , patient's has multiple comorbidities. Medications reviewed and adjusted accordingly: Yes
[2017-03-26 13:38] LABS: JO-1 ANTIBODY (ANACOMP) <0.2 AI (0.0-0.9)
--- NOTE | 2017-04-01 09:54 | XCELERA REPORT ---
[address] [address] Transthoracic Echocardiogram Report Name: ROSIE PETERSON Age: 41 yrs Gender: Female : 1975 Patient Status: Inpatient Patient Location: [address] [address] Study Date: 03/24/2017 02:41 PM Height: 66 in Weight: 241 lb BSA: 2.2 m2 Procedure: A complete two-dimensional transthoracic echocardiogram was performed (2D, M-mode, spectral and color flow Doppler). The study was technically adequate with some images being suboptimal in quality. Reason For Study: CP Ordering Physician: BOB MARSHALL Performed By: Shante Truong Interpretation Summary The left ventricular ejection fraction is within normal limits. There is borderline concentric left ventricular hypertrophy. The left ventricle is grossly normal size. LV diastolic function could not be adequately assessed. No regional wall motion abnormalities noted. The right ventricular systolic function is normal. The right atrium is normal. The left atrial size is normal. There is a trace amount of mitral regurgitation There is no mitral valve stenosis. No aortic regurgitation is present. There is no aortic valve stenosis There is a trace to mild amount of tricuspid regurgitation Right ventricular systolic pressure is at the upper limits of normal The aortic root is not well visualized but is probably normal size. The inferior vena cava appeared normal and decreased > 50% with respiration (RAP 5-10 mmHg) Minimal pericardial effusion. MMode/2D Measurements & Calculations RVDd: 3.1 cm LVIDd: 4.0 cm FS: 36.2 % Ao root diam: 2.7 cm IVSd: 1.2 cm LVIDs: 2.6 cm EDV(Teich): 70.8 ml LVPWd: 1.2 cm ESV(Teich): 23.8 ml Ao root area: 5.5 cm2 EF(Teich): 66.4 % LA dimension: 3.2 cm Doppler Measurements & Calculations MV E max marshall: MV P1/2t max marshall: Ao V2 max: LV V1 max P.3 cm/sec 129.8 cm/sec 168.5 cm/sec 6.8 mmHg MV A max marshall: MV P1/2t: 62.4 msec Ao max PG: LV V1 max: 75.5 cm/sec 11.4 mmHg 130.8 cm/sec MV E/A: 1.7 MVA(P1/2t): 3.5 cm2 MV dec slope: 609.8 cm/sec2 PA V2 max: PI end-d marshall: TR max marshall: 83.9 cm/sec 73.3 cm/sec 240.3 cm/sec PA max PG: TR max P.8 mmHg 23.1 mmHg Left Ventricle The left ventricle is grossly normal size. There is borderline concentric left ventricular hypertrophy. The left ventricular ejection fraction is within normal limits. LV diastolic function could not be adequately assessed. No regional wall motion abnormalities noted. Right Ventricle The right ventricle is grossly normal size. There is normal right ventricular wall thickness. The right ventricular systolic function is normal. Atria The right atrium is normal. The left atrial size is normal. Interarterial septum not well visualized and not well dopplered. Cannot comment on ASD/PFO presence. Mitral Valve The mitral valve is grossly normal. There is no mitral valve stenosis. There is a trace amount of mitral regurgitation. Aortic Valve The aortic valve is grossly normal. There is no aortic valve stenosis. No aortic regurgitation is present. Tricuspid Valve The tricuspid valve is not well visualized, but is grossly normal. There is no tricuspid stenosis. There is a trace to mild amount of tricuspid regurgitation. Right ventricular systolic pressure is at the upper limits of normal. Pulmonic Valve The pulmonic valve is not well visualized. Great Vessels The aortic root is not well visualized but is probably normal size. The inferior vena cava appeared normal and decreased > 50% with respiration (RAP 5-10 mmHg). Effusions Minimal pericardial effusion. : BOB MARSHALL > Bob Marshall
== END 2017-03-25 18:29 | disposition home or self-care (01) ==
LOC: ER 15:36 → EH 18:13 → UNDOADMOB 18:13 → EH 18:42 → 5 19:46
DX: R07.2 Precordial pain (principal); E03.9 Hypothyroidism, unspecified; G43.909 Migraine, unspecified, not intractable, without status migrainosus; E11.9 Type 2 diabetes mellitus without complications; E66.01 Morbid (severe) obesity due to excess calories; F31.9 Bipolar disorder, unspecified; R20.0 Anesthesia of skin; R20.2 Paresthesia of skin; R06.02 Shortness of breath; R06.4 Hyperventilation; R61 Generalized hyperhidrosis; R41.0 Disorientation, unspecified; R00.2 Palpitations; R60.0 Localized edema; G47.00 Insomnia, unspecified; R53.83 Other fatigue; M25.60 Stiffness of unspecified joint, not elsewhere classified; F41.0 Panic disorder [episodic paroxysmal anxiety]; M79.643 Pain in unspecified hand; Z79.899 Other long term (current) drug therapy; M79.606 Pain in leg, unspecified; Z79.82 Long term (current) use of aspirin; Z79.84 Long term (current) use of oral hypoglycemic drugs; Z90.49 Acquired absence of other specified parts of digestive tract; Z90.710 Acquired absence of both cervix and uterus; Z98.890 Other specified postprocedural states; Z68.41 Body mass index [BMI] 40.0-44.9, adult
CPT/HCPCS: 93005; 99285; 96374; 96375; 36415 ×2; 84439; 82553 ×2; 82962 ×3; 82550 ×2; 84443; 85025; 81025; 86038; 86430; 80053; 81001 ×2; 84484 ×2; 85379; 86225; 86235 ×8; 93306; 93971; 70450; 71275; 93010; G0378 ×4; J1200; J3490 ×4; J2765; J1650; J7030

== ENCOUNTER 2017-06-01 13:31 | Emergency (ER) | payer BC ==
[2017-06-01] MEDS ORDERED: OXYCODONE-ACETAMINOPHEN 5-325 MG TABLET PO ONE (15:20)
[2017-06-01] MEDS ORDERED: ONDANSETRON 4 MG TAB.RAPDIS PO ONE (15:20)
--- NOTE | 2017-06-01 15:23 | ER Document Report ---
ED Syncope and Near Syncope - General Chief Complaint: Fall Injury Stated Complaint: FALL/ARM HEAD PAIN Time Seen by Provider: 06/01/17 14:57 Mode of Arrival: Ambulatory Information source: Patient Notes: Patient states that she was taking a shower this morning and had a syncopal episode. Her mother was in the adjacent room and heard her fall and came in and found her lying on her right side in the bathtub. Patient complains of right-sided head, facial pain and right shoulder pain. Patient reports nausea and headache. Patient denies any vomiting or diarrhea. Patient denies any recent bed rest, travel or immobilization. Patient denies any history of PE or DVT in the past. Patient denies any chest pain or dyspnea. TRAVEL OUTSIDE OF THE [place] IN LAST 30 DAYS: No - HPI Patient complains to provider of: Fainting Episode witnessed (by whom): No Symptoms prior to episode: Headache, Nausea/vomiting. No: Back pain, Chest pain , Dizziness, Lightheaded, Short of breath Position/Activity at time of episode: Standing Quality of pain: Achy Pain Level: 4 Context: Lost consciousness. denies: Low blood sugar, , Recent immobilization, Recent seizures, Recent travel Injury location: Head, RUE Current symptoms: Arm pain, Shoulder pain. denies: Chest pain, Fever, Short of breath, Vomiting Similar symptoms previously: No - Related Data Allergies/Adverse Reactions: Penicillins Allergy (Verified 06/01/17 13:34) Past Medical History - General Information source: Patient - Social History Smoking Status: Never Smoker Frequency of alcohol use: None Drug Abuse: None Occupation: None Lives with: Family Family History: Hypertension Patient has suicidal ideation: No Patient has homicidal ideation: No - Past Medical History Cardiac Medical History: Denies: Hx DVT, Hx Hypertension, Hx Pulmonary Embolism Neurological Medical History: Reports: Hx Migraine Endocrine Medical History: Reports: Hx Hypothyroidism Renal/ Medical History: Denies: Hx Peritoneal Dialysis Psychiatric Medical History: Reports: Hx Bipolar Disorder, Hx Depression - Anxiety Past Surgical History: Reports: Hx Cholecystectomy, Hx Hysterectomy, Other - thyroid Review of Systems - Review of Systems Constitutional: No symptoms reported. denies: Fever, Recent illness EENT: No symptoms reported Cardiovascular: Syncope. denies: Chest pain Respiratory: No symptoms reported. denies: Cough, Short of breath Gastrointestinal: Nausea. denies: Abdominal pain, Vomiting Genitourinary: No symptoms reported Female Genitourinary: No symptoms reported Musculoskeletal: Back pain, Joint pain, Neck pain Skin: No symptoms reported Hematologic/Lymphatic: No symptoms reported Neurological/Psychological: Headaches. denies: Confusion, Weakness Physical Exam - Vital signs Vitals: Temp Pulse Resp BP Pulse Ox 98.5 F 67 18 126/76 H 100 06/01/17 13:34 06/01/17 13:34 06/01/17 13:34 06/01/17 13:34 06/01/17 13:34 - General General appearance: Appears well, Alert In distress: None - HEENT Head: Normocephalic, Atraumatic. No: Abrasions, [place]'s sign, [place]'s eyes, Tenderness Eyes: Normal Conjunctiva: Normal Extraocular movements intact: Yes Eyelashes: Normal Pupils: PERRL Ears: Normal External canal: Normal Tympanic membrane: Normal Nasal: Normal Mouth/Lips: Normal Mucous membranes: Normal Pharynx: Normal Neck: Other - Mild posterior cervical tenderness, right trapezius muscle tenderness, no midline step-off or deformity. No: Lymphadenopathy - Respiratory Respiratory status: No respiratory distress Chest status: Nontender Breath sounds: Normal. No: Rales, Rhonchi, Stridor, Wheezing Chest palpation: Normal - Cardiovascular Rhythm: Regular Heart sounds: S1 appreciated, S2 appreciated Murmur: No - Back Back: Normal, Nontender - Extremities General upper extremity: Tender - right shoulder joint tenderness, no deformity , no dislocation General lower extremity: Normal inspection, Nontender, Normal ROM Shoulder: Tender. No: Deformity, Dislocation, Instability, Laceration, Limited ROM - Neurological Neuro grossly intact: Yes Cognition: Normal Arnold Coma Scale Eye Opening: Spontaneous Alla Coma Scale Verbal: Oriented Arnold Coma Scale Motor: Obeys Commands Alla Coma Scale Total: 15 - Psychological Associated symptoms: Normal affect, Normal mood - Skin Skin Temperature: Warm Skin Moisture: Dry Skin Color: Normal Course - Re-evaluation Re-evalutation: 06/01/17 15:[address] Martines regarding patient presentation diagnostic evaluation. Agrees with plan for imaging, EKG basic labs and a D-dimer test. 06/02/17 Discuss results of patient's diagnostic tests with her. Patient without any chest pain, nausea, vomiting, or dyspnea. Patient reports some improvement of headache symptoms after medication. Patient neurologically intact without any evidence concerning for PE. Patient advised that she will need to follow-up with dental provider, branch services manager primary doctor and possibly orthopedic doctor for further evaluation. - Vital Signs Vital signs: Temp Pulse Resp BP Pulse Ox 98.1 F 62 18 126/78 H 99 06/01/17 19:50 06/01/17 19:50 06/01/17 19:50 06/01/17 19:50 06/01/17 19:50 - Laboratory Result Diagrams: 06/01/17 15:55 06/01/17 15:55 Laboratory results interpreted by me: 06/01/17 06/01/17 06/01/17 15:55 15:55 15:55 Seg Neutrophils % 38.0 L Lymphocytes % 50.8 H D-Dimer 0.72 H Chloride 109 H Labs- Entire Visit 06/01/17 06/01/17 06/01/17 15:55 15:55 15:55 WBC 5.3 RBC 4.37 Hgb 13.2 Hct 38.9 MCV 89 MCH 30.3 MCHC 34.0 RDW 13.7 Plt Count 221 Seg Neutrophils % 38.0 L Lymphocytes % 50.8 H Monocytes % 5.4 Eosinophils % 5.2 Basophils % 0.6 Absolute Neutrophils 2.0 Absolute Lymphocytes 2.7 Absolute Monocytes 0.3 Absolute Eosinophils 0.3 Absolute Basophils 0.0 D-Dimer 0.72 H Sodium 144.0 Potassium 4.1 Chloride 109 H Carbon Dioxide 24 Anion Gap 11 BUN 17 Creatinine 0.90 Est GFR ( Amer) > 60 Est GFR (Non-Af Amer) > 60 Glucose 100 Calcium 8.8 Total Bilirubin 0.4 Direct Bilirubin 0.4 Indirect Bilirubin Not Reportable Neonat Total Bilirubin Not Reportable AST 18 ALT 36 Alkaline Phosphatase 83 Total Protein 7.0 Albumin 4.0 - Diagnostic Test Radiology reviewed: Reports reviewed - EKG Interpretation by Me EKG shows normal: Sinus rhythm Rate: Normal Procedures - Immobilization Right Shoulder Pre-Proc Neuro Vasc Exam: Normal Immobilizer type: Sling Performed by: KATARINA Post-Proc Neuro Vasc Exam: Normal Alignment checked and good: Yes Discharge - Discharge Clinical Impression: Dental infection Syncope Qualifiers: Syncope type: unspecified Qualified Code(s): R55 - Syncope and collapse Shoulder sprain Qualifiers: Encounter type: initial encounter Shoulder sprain type: unspecified sprain Laterality: right Qualified Code(s): S43.401A - Unspecified sprain of right shoulder joint, initial encounter Headache Qualifiers: Headache type: unspecified Headache chronicity pattern: acute headache Intractability: not intractable Qualified Code(s): R51 - Headache Condition: Stable Disposition: HOME, SELF-CARE Instructions: Clindamycin ([facility]), Dental Infection or Abscess ([facility]), Oral Narcotic Medication ([facility]), Shoulder Injury ([facility]), Syncopal Episode ([facility]), Temporary Sling ([facility]) Additional Instructions: Return immediately for any new or worsening symptoms Followup with your primary care provider, call tomorrow to make a followup appointment Follow-up with branch services manager for recheck, call tomorrow for an appointment Follow-up with your dental care provider Follow-up with orthopedic doctor for any continued shoulder joint pain. Prescriptions: Clindamycin HCl [Cleocin 300 mg Capsule] 300 mg PO TID #21 capsule Fluconazole [Diflucan] 150 mg PO ONCE PRN #1 tablet PRN Reason: Oxycodone HCl/Acetaminophen [Percocet 5-325 mg Tablet] 1 tab PO ASDIR PRN #15 tablet PRN Reason: Referrals: [facility] [Provider Group] - Follow up as needed JADON MARSHALL MD [ACTIVE STAFF] - Follow up as needed
[2017-06-01 16:32] LABS: ABSOLUTE EOSINOPHILS # (AUTO) 0.3 10^3/uL (0.0-0.6); ABSOLUTE LYMPHOCYTES (AUTO) 2.7 10^3/uL (0.5-4.7); ABSOLUTE MONOCYTES (AUTO) 0.3 10^3/uL (0.1-1.4); BASOPHILS % (AUTO) 0.6 % (0-2); EOSINOPHILS % (AUTO) 5.2 % (0-6); HEMATOCRIT 38.9 % (36.0-47.0); HEMOGLOBIN 13.2 g/dL (12.0-15.5); HGB HCT DIFFERENCE 0.7; LYMPHOCYTES % (AUTO) 50.8 % (13-45); MEAN CORPUSCULAR HEMOGLOBIN 30.3 pg (27.0-33.4); MEAN CORPUSCULAR VOLUME 89 fl (80-97); MONOCYTES % (AUTO) 5.4 % (3-13); RED BLOOD COUNT 4.37 10^6/uL (3.72-5.28); RED CELL DISTRIBUTION WIDTH 13.7 % (11.5-14.0); WHITE BLOOD COUNT 5.3 10^3/uL (4.0-10.5)
--- NOTE | 2017-06-01 16:38 | RADIOLOGY REPORT (SQ) ---
EXAM DESCRIPTION: CT HEAD WITHOUT COMPLETED DATE/TIME: 06/01/2017 4:30 pm REASON FOR STUDY: syncope, CHO COMPARISON: 03/23/2017 TECHNIQUE: Axial images acquired through the brain without intravenous contrast. Images reviewed wi th bone, brain and subdural windows. Images stored on PACS. All CT scanners at this facility use dose modulation, iterative reconstruction, and/or weight based d osing when appropriate to reduce radiation dose to as low as reasonably achievable (ALARA). [facility]: Dose Right [facility]: CareDose [facility]: Dose Right [facility]: Teradose 4D [facility]: Smart [employer] RADIATION DOSE: Up-to-date CT equipment and radiation dose reduction techniques were employed. CTDIv ol: 64.6 mGy. DLP: 1163 mGy-cm. mGy. LIMITATIONS: None. FINDINGS: VENTRICLES: Normal size and contour. CEREBRUM: No masses. No hemorrhage. No midline shift. No evidence for acute infarction. Normal gra y/white matter differentiation. No areas of low density in the white matter. CEREBELLUM: No masses. No hemorrhage. No alteration of density. No evidence for acute infarction. EXTRAAXIAL SPACES: No fluid collections. No masses. ORBITS AND GLOBE: No intra- or extraconal masses. Normal contour of globe without masses. CALVARIUM: No fracture. PARANASAL SINUSES: No fluid or mucosal thickening. SOFT TISSUES: No mass or hematoma. OTHER: No other significant finding. IMPRESSION: NORMAL BRAIN CT WITHOUT CONTRAST. EVIDENCE OF ACUTE STROKE: NO. COMMENT: Quality ID # 436: Final reports with documentation of one or more dose reduction techniques (e.g., Automated exposure control, adjustment of the mA and/or kV according to patient size, use of iterative reconstruction technique) TECHNICAL DOCUMENTATION: JOB ID: [id number]- All Rights Reserved
[2017-06-01 16:48] LABS: ALANINE AMINOTRANSFERASE 36 U/L (9-52); ALKALINE PHOSPHATASE 83 U/L (38-126); ANION GAP 11 (5-19); ASPARTATE AMINO TRANSFERASE 18 U/L (14-36); BILIRUBIN,DIRECT 0.4 mg/dL (0.0-0.4); BILIRUBIN,TOTAL 0.4 mg/dL (0.2-1.3); BLOOD UREA NITROGEN 17 mg/dL (7-20); CALCIUM 8.8 mg/dL (8.4-10.2); CARBON DIOXIDE 24 mmol/L (22-30); CHLORIDE 109 mmol/L (98-107); GLUCOSE 100 mg/dL (75-110); POTASSIUM 4.1 mmol/L (3.6-5.0)
--- NOTE | 2017-06-01 16:57 | RADIOLOGY REPORT (SQ) ---
EXAM DESCRIPTION: CT CERVICAL SPINE WITHOUT COMPLETED DATE/TIME: 06/01/2017 4:35 pm REASON FOR STUDY: syncope, neck pain COMPARISON: None. TECHNIQUE: Axial images acquired through the cervical spine without intravenous contrast. Images re viewed with lung, soft tissue and bone windows. Reconstructed coronal and sagittal MPR images review ed. Images stored on PACS. All CT scanners at this facility use dose modulation, iterative reconstruction, and/or weight based d osing when appropriate to reduce radiation dose to as low as reasonably achievable (ALARA). [facility]: Dose Right [facility]: CareDose [facility]: Dose Right [facility]: Teradose 4D [facility]: Smart [employer] RADIATION DOSE: Up-to-date CT equipment and radiation dose reduction techniques were employed. CTDIv ol: 21.0 mGy. DLP: 422 mGy-cm. mGy. LIMITATIONS: None. FINDINGS: ALIGNMENT: Anatomic. MINERALIZATION: Normal. VERTEBRAL BODIES: No fractures or dislocation. DISCS: No significant disc disease. FACETS, LATERAL MASSES, POSTERIOR ELEMENTS: No fractures. No dislocation. No acute findings. HARDWARE: None in the spine. VISUALIZED RIBS: No fractures. LUNG APICES AND SOFT TISSUES: No significant or acute findings. OTHER: No other significant finding. IMPRESSION: NO ACUTE OR SIGNIFICANT FINDINGS IN THE CERVICAL SPINE. TECHNICAL DOCUMENTATION: JOB ID: [id number] Quality ID # 436: Final reports with documentation of one or more dose reduction techniques (e.g., Au tomated exposure control, adjustment of the mA and/or kV according to patient size, use of iterative reconstruction technique) 2010 [employer]- All Rights Reserved
--- NOTE | 2017-06-01 17:02 | RADIOLOGY REPORT (SQ) ---
EXAM DESCRIPTION: CT FACIAL AREA WITHOUT COMPLETED DATE/TIME: 06/01/2017 4:35 pm REASON FOR STUDY: syncope,r facial pain COMPARISON: None. TECHNIQUE: Noncontrasted images through the facial bones and orbits windowed for bone and soft tissu e. Additional coronal and sagittal reconstructed images reviewed. All images stored on PACS. All CT scanners at this facility use dose modulation, iterative reconstruction, and/or weight based d osing when appropriate to reduce radiation dose to as low as reasonably achievable (ALARA). [facility]: Dose Right [facility]: CareDose [facility]: Dose Right [facility]: Teradose 4D [facility]: [employer] RADIATION DOSE: Up-to-date CT equipment and radiation dose reduction techniques were employed. CTDIv ol: 30.4 mGy. DLP: 530 mGy-cm. mGy. LIMITATIONS: None. FINDINGS: FACIAL BONES: No fracture or bone lesion. ORBITS: Intact. No fracture. Symmetric intact globes and retroorbital soft tissues. PARANASAL SINUSES: Clear. No significant mucosal thickening, mass or fluid. No nasal polyps. Maxill franki sinus outlets are patent. SOFT TISSUES: No mass or edema. INFERIOR BRAIN: Limited view. No acute findings. OTHER: Multiple right-sided dental caries along the upper and lower posterior molar teeth. There are periapical tooth root lucencies along the right posterior lower 2nd molar. 1.8 x 1.2 [address] reactive [address] mph node in the right submandibular triangle. IMPRESSION: No acute facial fracture Right lower and upper posterior molar dental caries with right lower 2nd molar periapical tooth root lucencies worrisome for periapical tooth root abscess. 1.8 x 1.2 cm right submandibular triangle lym ph node. TECHNICAL DOCUMENTATION: JOB ID: [id number] Quality ID # 436: Final reports with documentation of one or more dose reduction techniques (e.g., Au tomated exposure control, adjustment of the mA and/or kV according to patient size, use of iterative reconstruction technique) 2010 [employer]- All Rights Reserved
--- NOTE | 2017-06-01 17:03 | RADIOLOGY REPORT (SQ) ---
EXAM DESCRIPTION: SHOULDER RIGHT 2 OR MORE VIEWS COMPLETED DATE/TIME: 06/01/2017 4:51 pm REASON FOR STUDY: syncope, r shoulder pain COMPARISON: None. NUMBER OF VIEWS: Three views. TECHNIQUE: Internal rotation, external rotation, and Y view images acquired of the right shoulder. LIMITATIONS: None. FINDINGS: MINERALIZATION: Normal. BONES: No acute fracture or dislocation. No worrisome bone lesions. JOINTS: No dislocation. VISUALIZED LUNGS AND RIBS: No pneumothorax. No rib fracture. SOFT TISSUES: No radiopaque foreign body. OTHER: No other significant finding. IMPRESSION: NEGATIVE STUDY OF THE RIGHT SHOULDER. NO RADIOGRAPHIC EVIDENCE OF ACUTE INJURY. TECHNICAL DOCUMENTATION: JOB ID: [id number] [employer]- All Rights Reserved
[2017-06-01] MEDS ORDERED: NORMAL SALINE 1000 ML 1,000 ML IV ONE (17:13)
[2017-06-01] MEDS ORDERED: CLINDAMYCIN 600 MG/D5W RTU 600 MG/50 ML RTUPB IV ONE (17:14)
--- NOTE | 2017-06-01 18:35 | RADIOLOGY REPORT (SQ) ---
EXAM DESCRIPTION: CTA CHEST COMPLETED DATE/TIME: 06/01/2017 6:17 pm REASON FOR STUDY: syncope, elevated dimer COMPARISON: CTA of the chest 03/25/2017 TECHNIQUE: CT scan of the chest performed using helical scanning technique with dynamic intravenous contrast injection. Images reviewed with lung, soft tissue and bone windows. Reconstructed coronal and sagittal MPR images reviewed. Additional 3 dimensional post-processing performed to develop Maximal Intensity Projection images (KS P). All images stored on PACS. All CT scanners at this facility use dose modulation, iterative reconstruction, and/or weight based d osing when appropriate to reduce radiation dose to as low as reasonably achievable (ALARA). [facility]: Dose Right [facility]: CareDose [facility]: Dose Right [facility]: Teradose 4D [facility]: [employer] CONTRAST TYPE AND DOSE: contrast/concentration: Isovue 370.00 mg/ml; Total Contrast Delivered: 80.0 ml; Total Saline Delivered: 40.1 ml Contrast bolus optimized for the pulmonary arteries. Not diagnostic for the aorta. RENAL FUNCTION: Creatinine 0.9 BUN 17 RADIATION DOSE: Up-to-date CT equipment and radiation dose reduction techniques were employed. CTDIv ol: 14.9 - 31.0 mGy. DLP: 1192 mGy-cm. . LIMITATIONS: None. FINDINGS: LUNGS AND PLEURA: No masses, infiltrates, pneumothorax. No pleural effusions, calcificati ons. AORTA AND GREAT VESSELS: No aneurysm. No dissection. HEART: No pericardial effusion. No significant coronary artery calcifications. PULMONARY ARTERIES: No emboli visualized in the main pulmonary arteries or the segmental branches. HILAR AND MEDIASTINAL STRUCTURES: No identified masses or abnormal nodes. HARDWARE: None in the chest. UPPER ABDOMEN: No significant findings. Limited exam. THYROID AND OTHER SOFT TISSUES: No masses. No adenopathy. BONES: No acute or significant finding. 3D MIPS: Confirm above findings. OTHER: No other significant finding. IMPRESSION: NORMAL CTA OF THE CHEST. NO PULMONARY EMBOLI. COMMENT: Quality ID # 436: Final reports with documentation of one or more dose reduction techniques (e.g., Automated exposure control, adjustment of the mA and/or kV according to patient size, use of iterative reconstruction technique) TECHNICAL DOCUMENTATION: JOB ID: [id number]- All Rights Reserved
[2017-06-01 19:52] VITALS: BP 126/78
--- NOTE | 2017-06-02 00:08 | EKG REPORT ---
SEVERITY:- NORMAL ECG - SINUS RHYTHM : Confirmed by: Bob Goss 02-Jun-2017 00:08:24
== END 2017-06-01 19:55 | disposition home or self-care (01) ==
LOC: ER 13:31
DX: S43.401A Unspecified sprain of right shoulder joint, initial encounter (principal); R55 Syncope and collapse; K04.7 Periapical abscess without sinus; R51 Headache; M25.511 Pain in right shoulder; R11.0 Nausea; W19.XXXA Unspecified fall, initial encounter
CPT/HCPCS: 93005; 99285; 96365; 36415; 85025; 80053; 85379; 73030; 70450; 70486; 71275; 72125; 93010; L3650; S0119; J7030

== ENCOUNTER 2017-06-14 14:36 | Emergency (ER) | payer BC ==
[2017-06-14 14:41] VITALS: BP 142/85
[2017-06-14] MEDS ORDERED: ONDANSETRON 4 MG TAB.RAPDIS PO ONE (14:58)
[2017-06-14] MEDS ORDERED: PROMETHAZINE HCL INJ 25 MG/1 ML VIAL IM ONE (14:58)
[2017-06-14] MEDS ORDERED: KETOROLAC TROMETHAMINE 60 MG/2 ML SDV IM ONE (15:00)
--- NOTE | 2017-06-14 15:48 | ER Document Report ---
ED General - General Chief Complaint: Headache Stated Complaint: HEADACHE Time Seen by Provider: 06/14/17 14:58 Mode of Arrival: Ambulatory Information source: Patient Notes: Patient states she has a history of migraines and hemiplegic migraines. She states 2 days ago she started with symptoms of a hemiplegic migraine. She states it is severe and not relieved by her Imitrex at home. She denies any trauma or fevers. Patient states pain is constant and severe. Is on the left side of her head. It radiates into her neck. And it is made worse by noise and light. Better with rest. It is constant and severe. TRAVEL OUTSIDE OF THE [place] IN LAST 30 DAYS: No - Related Data Allergies/Adverse Reactions: Penicillins Allergy (Verified 06/14/17 14:41) Past Medical History - General Information source: Patient - Social History Smoking Status: Never Smoker Chew tobacco use (# tins/day): No Frequency of alcohol use: Social Drug Abuse: None Family History: Hypertension Patient has suicidal ideation: No Patient has homicidal ideation: No - Past Medical History Cardiac Medical History: Denies: Hx DVT, Hx Hypertension, Hx Pulmonary Embolism Neurological Medical History: Reports: Hx Migraine Endocrine Medical History: Reports: Hx Hypothyroidism Renal/ Medical History: Denies: Hx Peritoneal Dialysis Psychiatric Medical History: Reports: Hx Bipolar Disorder, Hx Depression - Anxiety Past Surgical History: Reports: Hx Appendectomy, Hx Cholecystectomy, Hx Hysterectomy, Other - thyroid Review of Systems - Review of Systems Constitutional: denies: Chills, Fever Cardiovascular: denies: Chest pain, Palpitations Respiratory: denies: Cough, Hemoptysis Gastrointestinal: Nausea. denies: Diarrhea Physical Exam - Vital signs Vitals: Temp Pulse Resp BP Pulse Ox 98.9 F 77 18 142/85 H 100 06/14/17 14:40 06/14/17 14:40 06/14/17 14:40 06/14/17 14:40 06/14/17 14:40 Interpretation: Hypertensive - General General appearance: Appears well, Alert - HEENT Head: Normocephalic, Atraumatic Eyes: Normal Pupils: PERRL - Respiratory Respiratory status: No respiratory distress Chest status: Nontender Breath sounds: Normal Chest palpation: Normal - Cardiovascular Rhythm: Regular Heart sounds: Normal auscultation Murmur: No - Abdominal Inspection: Normal Distension: No distension Bowel sounds: Normal Tenderness: Nontender Organomegaly: No organomegaly - Back Back: Normal, Nontender - Extremities General upper extremity: Normal inspection, Nontender, Normal color, Normal ROM , Normal temperature General lower extremity: Normal inspection, Nontender, Normal color, Normal ROM , Normal temperature, Normal weight bearing. No: Valeria's sign - Neurological Neuro grossly intact: Yes Cognition: Normal Orientation: AAOx4 Alla Coma Scale Eye Opening: Spontaneous Alla Coma Scale Verbal: Oriented Norris Coma Scale Motor: Obeys Commands Norris Coma Scale Total: 15 Speech: Normal Motor strength normal: LUE, RUE, LLE, RLE Sensory: Normal - Psychological Associated symptoms: Normal affect, Normal mood - Skin Skin Temperature: Warm Skin Moisture: Dry Skin Color: Normal Course - Re-evaluation Re-evalutation: 06/14/17 15:48 Patient feels better after medications. - Vital Signs Vital signs: Temp Pulse Resp BP Pulse Ox 98.9 F 77 18 142/85 H 100 06/14/17 14:40 06/14/17 14:40 06/14/17 14:40 06/14/17 14:40 06/14/17 14:40 Discharge - Discharge Clinical Impression: Migraine Qualifiers: Migraine type: hemiplegic Status migrainosus presence: with status migrainosus Intractability: intractable Qualified Code(s): G43.411 - Hemiplegic migraine, intractable, with status migrainosus Condition: Stable Disposition: HOME, SELF-CARE Instructions: Toradol Injection ([facility]), Headache ([facility]), Antinausea Medication ( [facility]) Additional Instructions: Your blood pressure is elevated. Please have this rechecked within 1 week by your doctor. Prescriptions: Butalb/Acetaminophen/Caffeine [Fioricet (50-325-40 mg) Tablet] 1 - 2 tab PO Q4H #20 tab Forms: Elevated Blood Pressure, Return to Work Referrals: JERED NOGUEIRA MD [COMMUNITY BASED STAFF] - Follow up in 1 week
== END 2017-06-14 16:03 | disposition home or self-care (01) ==
LOC: ER 14:36
DX: G43.411 Hemiplegic migraine, intractable, with status migrainosus (principal); Z88.0 Allergy status to penicillin; R11.0 Nausea
CPT/HCPCS: 99283; 96372; J1885; S0119; J2550

== ENCOUNTER 2017-09-03 16:15 | Emergency (ER) | payer BC ==
--- NOTE | 2017-09-03 17:23 | ER Document Report ---
ED Medical Screen (RME) - General Chief Complaint: Chest Pain Stated Complaint: CHEST PAIN Time Seen by Provider: 09/03/17 17:16 Mode of Arrival: Ambulatory Information source: Patient TRAVEL OUTSIDE OF THE [place] IN LAST 30 DAYS: No - HPI Onset: Other - 2 DAYS Onset/Duration: Gradual Quality of pain: Pressure Severity: Mild Associated Symptoms: denies: Nausea, Shortness of breath, Sweating Exacerbated by: Denies Relieved by: Denies Similar symptoms previously: No Recently seen / treated by doctor: Yes - URI SXS 2 WKS AGO, F/U CXR 2d AGO - Related Data Allergies/Adverse Reactions: Penicillins Allergy (Verified 09/03/17 16:15) Past Medical History - General Information source: Patient - Social History Lives with: Family Family history: None - Past Medical History Cardiac Medical History: Reports: None Denies: Hx DVT, Hx Hypertension, Hx Pulmonary Embolism Pulmonary Medical History: Reports: None EENT Medical History: Reports: None Neurological Medical History: Reports: Hx Migraine Endocrine Medical History: Reports: Hx Hypothyroidism Renal/ Medical History: Denies: Hx Peritoneal Dialysis Malignancy Medical History: Reports: None GI Medical History: Reports: None Musculoskeltal Medical History: Reports None Psychiatric Medical History: Reports: Hx Bipolar Disorder, Hx Depression - Anxiety Past Surgical History: Reports: Hx Appendectomy, Hx Cholecystectomy, Hx Hysterectomy, Other - thyroid Review of Systems - Review of Systems Constitutional: No symptoms reported EENT: No symptoms reported Cardiovascular: See HPI Respiratory: See HPI Gastrointestinal: No symptoms reported Genitourinary: No symptoms reported Female Genitourinary: No symptoms reported Musculoskeletal: No symptoms reported Skin: No symptoms reported Neurological/Psychological: No symptoms reported Physical Exam - Vital signs Vitals: Temp Pulse Resp BP Pulse Ox 98.6 F 63 20 124/82 98 09/03/17 16:20 09/03/17 16:20 09/03/17 16:20 09/03/17 16:20 09/03/17 16:20 Interpretation: Normal. No: Hypertensive, Tachycardic, Tachypneic, Febrile - General General appearance: Appears well, Alert In distress: None - HEENT Head: Normocephalic Eyes: Normal Conjunctiva: Normal Ears: Normal Nasal: Normal Mouth/Lips: Normal Mucous membranes: Normal - Respiratory Respiratory status: No respiratory distress Breath sounds: Normal - Cardiovascular Rhythm: Regular Heart sounds: Normal auscultation Murmur: No - Abdominal Inspection: Normal, Obese - Extremities General upper extremity: Normal inspection General lower extremity: Normal inspection. No: Edema - Neurological Neuro grossly intact: Yes Cognition: Normal Orientation: AAOx4 - Psychological Associated symptoms: Normal affect, Normal mood - Skin Skin Temperature: Warm Skin Moisture: Dry Skin Color: Normal Skin Turgor: Elastic Course - Vital Signs Vital signs: Temp Pulse Resp BP Pulse Ox 98.6 F 63 20 124/82 98 09/03/17 16:20 09/03/17 16:20 09/03/17 16:20 09/03/17 16:20 09/03/17 16:20
[2017-09-03] MEDS ORDERED: NITROGLYCERIN 0.4 MG/TAB 25 TAB/BOTTLE SL ONE (17:27)
[2017-09-03] MEDS ORDERED: ASPIRIN 81 MG TABLET, CHEWABLE PO ONE (18:32)
[2017-09-03] MEDS ORDERED: NITROGLYCERIN 2% OINTMENT 1 GM PACKET TP ONE (18:33)
[2017-09-03 19:12] LABS: ABSOLUTE EOSINOPHILS # (AUTO) 0.2 10^3/uL (0.0-0.6); ABSOLUTE LYMPHOCYTES (AUTO) 4.3 10^3/uL (0.5-4.7); ABSOLUTE MONOCYTES (AUTO) 0.3 10^3/uL (0.1-1.4); ABSOLUTE NEUT (AUTO) 4.8 10^3/uL (1.7-8.2); BASOPHILS % (AUTO) 0.5 % (0-2); EOSINOPHILS % (AUTO) 1.9 % (0-6); HEMATOCRIT 41.8 % (36.0-47.0); HEMOGLOBIN 14.2 g/dL (12.0-15.5); LYMPHOCYTES % (AUTO) 44.7 % (13-45); MEAN CORPUSCULAR HEMOGLOBIN 31.4 pg (27.0-33.4); MEAN CORPUSCULAR HGB CONC 33.9 g/dL (32.0-36.0); MEAN CORPUSCULAR VOLUME 92 fl (80-97); MONOCYTES % (AUTO) 3.1 % (3-13); PLATELET COUNT 314 10^3/uL (150-450); RED BLOOD COUNT 4.52 10^6/uL (3.72-5.28); RED CELL DISTRIBUTION WIDTH 13.9 % (11.5-14.0); SEGMENTED NEUTROPHILS % (AUTO) 49.8 % (42-78); TOTAL CELLS COUNTED % (AUTO) 100 %; WHITE BLOOD COUNT 9.7 10^3/uL (4.0-10.5)
[2017-09-03 19:30] LABS: ALANINE AMINOTRANSFERASE 36 U/L (9-52); ALBUMIN 4.7 g/dL (3.5-5.0); ALKALINE PHOSPHATASE 88 U/L (38-126); ANION GAP 14 (5-19); ASPARTATE AMINO TRANSFERASE 20 U/L (14-36); BILIRUBIN,DIRECT 0.1 mg/dL (0.0-0.4); BILIRUBIN,TOTAL 0.4 mg/dL (0.2-1.3); BLOOD UREA NITROGEN 20 mg/dL (7-20); CALCIUM 9.5 mg/dL (8.4-10.2); CARBON DIOXIDE 23 mmol/L (22-30); CHLORIDE 107 mmol/L (98-107); CREATINE KINASE 67 U/L (30-135); GLUCOSE 89 mg/dL (75-110); POTASSIUM 3.8 mmol/L (3.6-5.0); SODIUM 144.1 mmol/L (137-145); TOTAL PROTEIN 7.7 g/dL (6.3-8.2)
--- NOTE | 2017-09-03 19:32 | RADIOLOGY REPORT (SQ) ---
EXAM DESCRIPTION: CHEST SINGLE VIEW COMPLETED DATE/TIME: 09/03/2017 7:04 pm REASON FOR STUDY: CHEST PAIN COMPARISON: None. NUMBER OF VIEWS: One view. TECHNIQUE: Single frontal radiographic view of the chest acquired. LIMITATIONS: None. FINDINGS: LUNGS AND PLEURA: No opacities, masses or pneumothorax. No pleural effusion. MEDIASTINUM AND HILAR STRUCTURES: No masses. Contour normal. HEART AND VASCULAR STRUCTURES: Heart normal in size. Normal vasculature. BONES: No acute findings. HARDWARE: None in the chest. OTHER: No other significant finding. IMPRESSION: NO SIGNIFICANT RADIOGRAPHIC FINDING IN THE CHEST. TECHNICAL DOCUMENTATION: JOB ID: [id number] [employer]- All Rights Reserved
[2017-09-03 19:42] LABS: CREATINE KINASE MB 0.43 ng/mL (<4.55)
[2017-09-03 19:50] LABS: TROPONIN I < 0.012 ng/mL
--- NOTE | 2017-09-03 22:17 | EKG REPORT ---
SEVERITY:- BORDERLINE ECG - SINUS RHYTHM LOW VOLTAGE THROUGHOUT BORDERLINE T ABNORMALITIES, DIFFUSE LEADS : Confirmed by: Bob Goss 03-Sep-2017 22:16:43
--- NOTE | 2017-09-03 23:00 | ER Document Report ---
ED General - General Chief Complaint: Chest Pain Stated Complaint: CHEST PAIN Time Seen by Provider: 09/03/17 17:16 Mode of Arrival: Ambulatory Notes: Patient is a 42-year-old female with pain of chest pain. Chest pain is substernal and nonradiating. Says it feels like a heaviness on her chest. She says it is worse with exertion. Usually goes away when she stays still. She denies any history of hypertension or high cholesterol. She does have a previous history of diabetes but says she controlled her diet was able to come off medications. She does have family history of coronary disease and that her father had an MD in his late 40s and then of congestive heart failure age 68. She does not smoke. She does not do any drugs. She says that her pain was improving nitro. She had a stress test 1 year ago which was normal. No other complaints at this time. Chest pain has been intermittent for 2 days. TRAVEL OUTSIDE OF THE [place] IN LAST 30 DAYS: No - Related Data Allergies/Adverse Reactions: Penicillins Allergy (Verified 09/03/17 16:15) Past Medical History - General Information source: Patient - Social History Smoking Status: Never Smoker Chew tobacco use (# tins/day): No Frequency of alcohol use: Occasional Drug Abuse: None Lives with: Family Family History: Hypertension Patient has suicidal ideation: No Patient has homicidal ideation: No - Past Medical History Cardiac Medical History: Reports: None Denies: Hx DVT, Hx Hypertension, Hx Pulmonary Embolism Pulmonary Medical History: Reports: None EENT Medical History: Reports: None Neurological Medical History: Reports: Hx Migraine Endocrine Medical History: Reports: Hx Hypothyroidism Renal/ Medical History: Denies: Hx Peritoneal Dialysis Malignancy Medical History: Reports: None GI Medical History: Reports: None Musculoskeltal Medical History: Reports None Psychiatric Medical History: Reports: Hx Bipolar Disorder, Hx Depression - Anxiety Past Surgical History: Reports: Hx Appendectomy, Hx Cholecystectomy, Hx Hysterectomy, Other - thyroid Review of Systems - Review of Systems Notes: My Normal Review Basic REVIEW OF SYSTEMS: CONSTITUTIONAL : Denies fever, chills, or sweats. Denies recent illness. EENT: Denies eye, ear, throat, or mouth pain or symptoms. Denies nasal or sinus congestion. CARDIOVASCULAR: Chest pain RESPIRATORY: Denies cough, cold, or chest congestion. Denies shortness of breath, difficulty breathing, or wheezing. GASTROINTESTINAL: Denies abdominal pain. Denies nausea, vomiting, or diarrhea. Denies constipation. Last BM: MUSCULOSKELETAL: Denies neck or back pain or joint pain or swelling. SKIN: Denies rash or skin lesions. NEUROLOGICAL: Denies altered mental status or loss of consciousness. Denies headache. Denies weakness or paralysis or loss of use of either side. Denies problems with gait or speech. Denies sensory or motor loss. ALL OTHER SYSTEMS REVIEWED AND NEGATIVE. Physical Exam - Vital signs Vitals: Temp Pulse Resp BP Pulse Ox 98.6 F 63 20 124/82 98 09/03/17 16:20 09/03/17 16:20 09/03/17 16:20 09/03/17 16:20 09/03/17 16:20 - Notes Notes: General Appearance: Well nourished, alert, cooperative, no acute distress, no obvious discomfort. Well-appearing. Vitals: reviewed, See vital signs table. Head: no swelling or tenderness to the head Eyes: PERRL, EOMI, Conjuctiva clear Mouth: No decreasd moisture Lungs: No wheezing, No rales, No rhonci, No accessory muscle use, good air exchange bilaterally. Heart: Normal rate, Regular rythm, No murmur, no rub Abdomen: Normal BS, soft, No rigidity, No abdominal tenderness, No guarding, no rebound, no abdominal masses, no organomegaly Extremities: strength 5/5 in all extremities, good pulses in all extremities, no swelling or tenderness in the extremities, no edema. Skin: warm, dry, appropriate color, no rash Neuro: speech clear, oriented x 3, normal affect, responds appropriately to questions. Course - Re-evaluation Re-evalutation: 09/04/17 00:15 Patient has a heart score of 3 based on history. Patient currently is well- appearing and has no chest pain. A recent move the Nitropaste approximately hour ago and she has had no recurrent chest pain and feels well. I did offer admission. I did talk to her about the heart score and her risk. Patient prefers to follow-up outpatient with cardiology. I will prescribe her nitro and informed her that she develops recurrent chest pain she should take a nitro tablet and return to ER immediately for reevaluation and probable admission. Patient agrees with plan will be discharged home. Dictation of this chart was performed using voice recognition software; therefore, there may be some unintended grammatical errors. - Vital Signs Vital signs: Temp Pulse Resp BP Pulse Ox 98.6 F 63 17 106/81 95 09/03/17 16:20 09/03/17 16:20 09/03/17 23:02 09/03/17 23:02 09/03/17 23:02 - Laboratory Result Diagrams: 09/03/17 18:43 09/03/17 18:43 Laboratory results interpreted by me: 09/03/17 18:43 Est GFR (Non-Af Amer) 57 L - EKG Interpretation by Me Additional EKG results interpreted by me: 09/03/17 23:00 EKG is reviewed and interpreted by me. EKG shows sinus rhythm with rate 58 bpm. She has very mild ST segment depression in the lateral leads which is unchanged comparison to her old EKG from June 01, 2017. No ST segment elevation. OR interval, QRS duration, QTc intervals are within normal range. Discharge - Discharge Clinical Impression: Chest pain Qualifiers: Chest pain type: unspecified Qualified Code(s): R07.9 - Chest pain, unspecified Condition: Good Disposition: HOME, SELF-CARE Additional Instructions: Because of your chest pain we did blood work and EKG looking at your heart. Your workup here was negative for any damage to your heart. Even though your workup is negative it does not completely rule out the possibility of a future heart attack. As discussed with you we risk stratify you using something called a HEART score. Based on your HEART score you have a 1.5% chance of a major cardiac event in the next 6 weeks. You have chosen outpatient follow up as opposed to admission. I feel that outpatient follow up is safe, but you need to have a very low threshold to return to the ER if you have recurrence of chest pain, any difficulty breathing, or if you feel unwell in anyway. Please call Dr. Marshall (allergy and immunology specialist) to make a close follow up appointment. Please return take a nitro table if you have chest pain and immediately return to the ER. Take 81mg of aspirin every day. Prescriptions: Nitroglycerin 0.3 mg SL Q5MP PRN #[id number] tab.subl PRN Reason: chest pain Referrals: JADON MARSHALL MD [ACTIVE STAFF] - 09/05/17
[2017-09-04 00:43] VITALS: BP 115/88
== END 2017-09-04 00:43 | disposition home or self-care (01) ==
LOC: ER 16:15
DX: R07.9 Chest pain, unspecified (principal); E03.9 Hypothyroidism, unspecified; Z88.0 Allergy status to penicillin; Z90.49 Acquired absence of other specified parts of digestive tract; Z90.710 Acquired absence of both cervix and uterus
CPT/HCPCS: 36415; 71045; 80053; 82550; 82553; 84484; 85025; 93005; 93010; 99285

== ENCOUNTER 2017-09-11 09:47 | Emergency (ER) | payer BC ==
--- NOTE | 2017-09-11 10:13 | ER Document Report ---
ED Medical Screen (RME) <AMI BONILLA - Last Filed: 09/11/17 10:13> - General TRAVEL OUTSIDE OF THE [place] IN LAST 30 DAYS: No <BHAVYA JARVIS - Last Filed: 09/12/17 22:58> - General Chief Complaint: Flu Symptoms Stated Complaint: CHEST PAIN, FEVER Time Seen by Provider: 09/11/17 10:06 Notes: Patient presents with several days of cough congestion and low-grade fevers. Patient was recently seen here on 03 September with chest pain rule out. She states she has followed up with a issuer and has a an outpatient stress test and echocardiogram that is scheduled in approximately 2 weeks. She was also recently seen at [facility] and had a CT of her chest due to "widening between her heart and lungs". (BHAVYA JARVIS) - Related Data Allergies/Adverse Reactions: Penicillins Allergy (Verified 09/11/17 09:52) Past Medical History - General Information source: Patient - Social History Chew tobacco use (# tins/day): No Frequency of alcohol use: Occasional Drug Abuse: None Family history: None <AMI BONILLA - Last Filed: 09/11/17 10:13> - Social History Chew tobacco use (# tins/day): No Frequency of alcohol use: Occasional Drug Abuse: None Family history: None - Past Medical History Cardiac Medical History: Denies: Hx DVT, Hx Hypertension, Hx Pulmonary Embolism Neurological Medical History: Reports: Hx Migraine Endocrine Medical History: Reports: Hx Hypothyroidism Renal/ Medical History: Denies: Hx Peritoneal Dialysis Psychiatric Medical History: Reports: Hx Bipolar Disorder, Hx Depression - Anxiety Past Surgical History: Reports: Hx Appendectomy, Hx Cholecystectomy, Hx Hysterectomy, Other - thyroid <BHAVYA JARVIS - Last Filed: 09/12/17 22:58> Review of Systems - Review of Systems Constitutional: Fever Cardiovascular: See HPI Respiratory: See HPI, Cough <AMI BONILLA - Last Filed: 09/11/17 10:13> Physical Exam - General General appearance: Appears well, Alert In distress: None - Respiratory Respiratory status: No respiratory distress Chest status: Nontender Breath sounds: Normal Chest palpation: Normal - Cardiovascular Rhythm: Regular Heart sounds: Normal auscultation Murmur: No - Neurological Neuro grossly intact: Yes Cognition: Normal Orientation: AAOx4 - Psychological Associated symptoms: Normal affect, Normal mood - Skin Skin Temperature: Warm Skin Moisture: Dry Skin Color: Normal <AMI BONILLA - Last Filed: 09/11/17 10:13> - Vital signs Vitals: Temp Pulse Resp BP Pulse Ox 100.7 F H 90 18 119/75 96 09/11/17 09:56 09/11/17 09:56 09/11/17 09:56 09/11/17 09:56 09/11/17 09:56 Course - Laboratory Result Diagrams: 09/11/17 10:20 09/11/17 10:20 <BHAVYA JARVIS - Last Filed: 09/12/17 22:58> - Vital Signs Vital signs: Temp Pulse Resp BP Pulse Ox 100.5 F H 90 18 117/74 99 09/11/17 11:27 09/11/17 09:56 09/11/17 11:27 09/11/17 11:27 09/11/17 11:27 - Laboratory Laboratory results interpreted by me: 09/11/17 09/11/17 10:20 10:20 WBC 3.2 L RDW 14.1 H Absolute Neutrophils 1.5 L Sodium 145.5 H Potassium 3.5 L Doctor's Discharge <AMI BONILLA - Last Filed: 09/11/17 10:13> <BHAVYA JARVIS - Last Filed: 09/12/17 22:58> - Discharge Clinical Impression: Influenza B Condition: Stable Disposition: HOME, SELF-CARE Additional Instructions: Return immediately for any new or worsening symptoms. Follow up with primary care provider, call tomorrow to make followup appointment. Prescriptions: Hydrocodone Bit/Homatropine [Hycodan Syrup 5-1.5 mg/5 ml Ud Cup] 5 ml PO Q4HP PRN #120 ml PRN Reason: Forms: Return to Work Scribe Documentation - Scribe Written by Scribe:: Sebastien Orosco 09/11/17 1015 acting as scribe for :: Charles <AMI BONILLA - Last Filed: 09/11/17 10:13>
[2017-09-11 10:35] LABS: ABSOLUTE LYMPHOCYTES (AUTO) 1.4 10^3/uL (0.5-4.7); ABSOLUTE MONOCYTES (AUTO) 0.2 10^3/uL (0.1-1.4); ABSOLUTE NEUT (AUTO) 1.5 10^3/uL (1.7-8.2); BASOPHILS % (AUTO) 0.7 % (0-2); HEMATOCRIT 40.3 % (36.0-47.0); HEMOGLOBIN 13.7 g/dL (12.0-15.5); LYMPHOCYTES % (AUTO) 44.6 % (13-45); MEAN CORPUSCULAR HEMOGLOBIN 31.4 pg (27.0-33.4); MEAN CORPUSCULAR VOLUME 92 fl (80-97); MONOCYTES % (AUTO) 7.1 % (3-13); PLATELET COUNT 198 10^3/uL (150-450); RED BLOOD COUNT 4.37 10^6/uL (3.72-5.28); RED CELL DISTRIBUTION WIDTH 14.1 % (11.5-14.0); SEGMENTED NEUTROPHILS % (AUTO) 46.6 % (42-78); TOTAL CELLS COUNTED % (AUTO) 100 %; WHITE BLOOD COUNT 3.2 10^3/uL (4.0-10.5)
[2017-09-11 10:52] LABS: ALANINE AMINOTRANSFERASE 25 U/L (9-52); ALBUMIN 4.3 g/dL (3.5-5.0); ALKALINE PHOSPHATASE 84 U/L (38-126); ANION GAP 14 (5-19); ASPARTATE AMINO TRANSFERASE 27 U/L (14-36); BILIRUBIN,DIRECT 0.2 mg/dL (0.0-0.4); BILIRUBIN,TOTAL 0.4 mg/dL (0.2-1.3); BLOOD UREA NITROGEN 11 mg/dL (7-20); CALCIUM 8.4 mg/dL (8.4-10.2); CARBON DIOXIDE 28 mmol/L (22-30); CHLORIDE 104 mmol/L (98-107); GLUCOSE 108 mg/dL (75-110); POTASSIUM 3.5 mmol/L (3.6-5.0); SODIUM 145.5 mmol/L (137-145); TOTAL PROTEIN 7.3 g/dL (6.3-8.2)
--- NOTE | 2017-09-11 10:52 | RADIOLOGY REPORT (SQ) ---
EXAM DESCRIPTION: CHEST PA/LAT COMPLETED DATE/TIME: 09/11/2017 10:43 am REASON FOR STUDY: cough, congestion COMPARISON: 09/03/2017 EXAM PARAMETERS: NUMBER OF VIEWS: two views TECHNIQUE: Digital Frontal and Lateral radiographic views of the chest acquired. RADIATION DOSE: NA LIMITATIONS: none FINDINGS: LUNGS AND PLEURA: No opacities, masses or pneumothorax. No pleural effusion. MEDIASTINUM AND HILAR STRUCTURES: No masses or contour abnormalities. HEART AND VASCULAR STRUCTURES: Heart normal size. No evidence for failure. BONES: No acute findings. HARDWARE: None in the chest. OTHER: No other significant finding. IMPRESSION: NO SIGNIFICANT RADIOGRAPHIC FINDING IN THE CHEST. TECHNICAL DOCUMENTATION: JOB ID: [id number] [employer]- All Rights Reserved Reading location - IP/workstation name: [email or web address]
[2017-09-11 11:09] LABS: A TYPE INFLUENZA AG NEGATIVE (NEGATIVE); B INFLUENZA AG POSITIVE (NEGATIVE)
--- NOTE | 2017-09-11 11:19 | ER Document Report ---
ED Flu Like - General Chief Complaint: Flu Symptoms Stated Complaint: CHEST PAIN, FEVER Time Seen by Provider: 09/11/17 10:06 Mode of Arrival: Ambulatory Information source: Patient Notes: Patient is a 42-year-old female who presents to the ER today for 1 week of chest pain, cough, runny nose, congestion, fever for the past 2 days. Patient denies any vomiting or diarrhea. She states that she is scheduled to have a stress test later on this month as she was seen here for chest pain on the this month. She states that the chest pain did start about a day before the congestion did. She admits to some numbness and tingling in her extremities, bilaterally as well. She does not have a history of asthma. TRAVEL OUTSIDE OF THE [place] IN LAST 30 DAYS: No - Related Data Allergies/Adverse Reactions: Penicillins Allergy (Verified 09/11/17 09:52) Past Medical History - General Information source: Patient - Social History Smoking Status: Never Smoker Chew tobacco use (# tins/day): No Frequency of alcohol use: Occasional Drug Abuse: None Family History: Hypertension Patient has suicidal ideation: No Patient has homicidal ideation: No - Past Medical History Cardiac Medical History: Denies: Hx DVT, Hx Hypertension, Hx Pulmonary Embolism Neurological Medical History: Reports: Hx Migraine Endocrine Medical History: Reports: Hx Hypothyroidism Renal/ Medical History: Denies: Hx Peritoneal Dialysis Psychiatric Medical History: Reports: Hx Bipolar Disorder, Hx Depression - Anxiety Past Surgical History: Reports: Hx Appendectomy, Hx Cholecystectomy, Hx Hysterectomy, Other - thyroid Review of Systems - Review of Systems Constitutional: See HPI EENT: See HPI Cardiovascular: No symptoms reported Respiratory: See HPI Gastrointestinal: No symptoms reported Genitourinary: No symptoms reported Female Genitourinary: No symptoms reported Musculoskeletal: No symptoms reported Skin: No symptoms reported Hematologic/Lymphatic: No symptoms reported Neurological/Psychological: No symptoms reported Physical Exam - Vital signs Vitals: Temp Pulse Resp BP Pulse Ox 100.7 F H 90 18 119/75 96 09/11/17 09:56 09/11/17 09:56 09/11/17 09:56 09/11/17 09:56 09/11/17 09:56 - Notes Notes: PHYSICAL EXAMINATION: GENERAL: Mildly ill-appearing, but in no acute distress. HEAD: Atraumatic, normocephalic. EYES: Pupils equal round and reactive to light, extraocular movements intact, sclera anicteric, conjunctiva are normal. ENT: ear canals without erythema or foreign body, TMs pearly busch with good bony landmarks, nares with mucoid discharge, oropharynx clear without exudates. Moist mucous membranes. NECK: Normal range of motion, supple without lymphadenopathy LUNGS: Productive cough, otherwise CTAB and equal. No wheezes rales or rhonchi. HEART: Regular rate and rhythm without murmurs ABDOMEN: Soft, no tenderness. No guarding, no rebound BACK: no vertebral tenderness, normal ROM GI/: no CVA tenderness EXTREMITIES: Normal range of motion, no pitting edema. No cyanosis. NEUROLOGICAL: Cranial nerves grossly intact. Normal sensory/motor exams. PSYCH: Normal mood, normal affect. SKIN: Warm, Dry, normal turgor, no rashes or lesions noted Course - Re-evaluation Re-evalutation: 09/11/17 11:27 Patient is febrile here with otherwise normal vital signs. Patient has a productive cough in the room. Chest x-ray normal, flu reveals positive test for influenza B. Patient states that she has cardiac follow-up later on this week and would like to keep her scheduled stress test outpatient. I will send her home with symptomatic medication for the flu is this is out the window of treating with Tamiflu. - Vital Signs Vital signs: Temp Pulse Resp BP Pulse Ox 100.7 F H 90 18 119/75 97 09/11/17 09:56 09/11/17 09:56 09/11/17 09:56 09/11/17 09:56 09/11/17 11:04 - Laboratory Result Diagrams: 09/11/17 10:20 09/11/17 10:20 Laboratory results interpreted by me: 09/11/17 09/11/17 10:20 10:20 WBC 3.2 L RDW 14.1 H Absolute Neutrophils 1.5 L Sodium 145.5 H Potassium 3.5 L Discharge - Discharge Clinical Impression: Influenza B Condition: Stable Disposition: HOME, SELF-CARE Additional Instructions: Return immediately for any new or worsening symptoms. Follow up with primary care provider, call tomorrow to make followup appointment. Prescriptions: Hydrocodone Bit/Homatropine [Hycodan Syrup 5-1.5 mg/5 ml Ud Cup] 5 ml PO Q4HP PRN #120 ml PRN Reason: Forms: Return to Work
[2017-09-11] MEDS ORDERED: ACETAMINOPHEN WITH CODEINE 120-12 MG/5 ML UDCUP PO ONE (11:25)
[2017-09-11 11:43] VITALS: BP 117/74
--- NOTE | 2017-09-11 16:10 | EKG REPORT ---
SEVERITY:- ABNORMAL ECG - SINUS RHYTHM LEFT POSTERIOR FASCICULAR BLOCK LOW VOLTAGE THROUGHOUT NONSPECIFIC T ABNORMALITIES, DIFFUSE LEADS : Confirmed by: Chay Frazier MD 11-Sep-2017 16:09:52
== END 2017-09-11 11:43 | disposition home or self-care (01) ==
LOC: ER 09:47
DX: J11.1 Influenza due to unidentified influenza virus with other respiratory manifestations (principal); R07.9 Chest pain, unspecified; R50.9 Fever, unspecified; Z88.0 Allergy status to penicillin; Z90.710 Acquired absence of both cervix and uterus; Z90.49 Acquired absence of other specified parts of digestive tract
CPT/HCPCS: 93005; 99284; 36415; 85025; 80053; 84484; 87804; 71046; 93010; J3490

== ENCOUNTER 2017-12-16 17:31 | Emergency (ER) | payer BC ==
[2017-12-16] MEDS ORDERED: NORMAL SALINE 1000 ML 1,000 ML IV ONE (18:04)
--- NOTE | 2017-12-16 18:04 | ER Document Report ---
ED Medical Screen (RME) - General Chief Complaint: Dizziness Stated Complaint: HEADACHE,NAUSEA,MUSCLE PAIN Time Seen by Provider: 12/16/17 17:55 Mode of Arrival: Wheelchair Information source: Patient, Relative Notes: 42 yr old female who was diagnsoed with shingles plaeced on acyclovier last week then had alergic reaction and placed on meclizine presents with complaints of not feeling well for the past week. Patient noted to be febrile I have greeted and performed a rapid initial assessment of this patient. A comprehensive ED assessment and evaluation of the patient, analysis of test results and completion of the medical decision making process will be conducted by additional ED providers. PHYSICAL EXAMINATION: GENERAL: Febrile but overall well-appearing, well-nourished and in no acute distress. Patient is noted to be hypotensive HEAD: Atraumatic, normocephalic. EYES: Pupils equal round extraocular movements intact, conjunctiva are normal. ENT: Nares patent NECK: Normal range of motion LUNGS: No respiratory distress Musculoskeletal: Normal range of motion NEUROLOGICAL: Normal speech, normal gait. PSYCH: Normal mood, normal affect. SKIN: Warm, Dry, normal turgor, no rashes or lesions noted. TRAVEL OUTSIDE OF THE [place] IN LAST 30 DAYS: No - Related Data Allergies/Adverse Reactions: Penicillins Allergy (Verified 12/16/17 17:35) valacyclovir Allergy (Verified 12/16/17 17:36) Past Medical History - Social History Family history: None - Past Medical History Cardiac Medical History: Denies: Hx DVT, Hx Hypertension, Hx Pulmonary Embolism Neurological Medical History: Reports: Hx Migraine Endocrine Medical History: Reports: Hx Hypothyroidism Renal/ Medical History: Denies: Hx Peritoneal Dialysis Psychiatric Medical History: Reports: Hx Bipolar Disorder, Hx Depression - Anxiety Past Surgical History: Reports: Hx Appendectomy, Hx Cholecystectomy, Hx Hysterectomy, Other - thyroid Physical Exam - Vital signs Vitals: Temp Pulse Resp BP Pulse Ox 100.8 F H 103 H 16 97/72 L 98 12/16/17 17:41 12/16/17 17:41 12/16/17 17:41 12/16/17 17:41 12/16/17 17:41 Course - Vital Signs Vital signs: Temp Pulse Resp BP Pulse Ox 100.8 F H 103 H 16 97/72 L 98 12/16/17 17:41 12/16/17 17:41 12/16/17 17:41 12/16/17 17:41 12/16/17 17:41
--- NOTE | 2017-12-16 18:28 | RADIOLOGY REPORT (SQ) ---
EXAM DESCRIPTION: CHEST 2 VIEWS COMPLETED DATE/TIME: 12/16/2017 6:20 pm REASON FOR STUDY: Cough fever COMPARISON: 10/24/2017 EXAM PARAMETERS: NUMBER OF VIEWS: two views TECHNIQUE: Digital Frontal and Lateral radiographic views of the chest acquired. RADIATION DOSE: NA LIMITATIONS: none FINDINGS: LUNGS AND PLEURA: No opacities, masses or pneumothorax. No pleural effusion. MEDIASTINUM AND HILAR STRUCTURES: No masses or contour abnormalities. HEART AND VASCULAR STRUCTURES: Heart normal size. No evidence for failure. BONES: No acute findings. HARDWARE: None in the chest. OTHER: No other significant finding. IMPRESSION: NO ACUTE RADIOGRAPHIC FINDING IN THE CHEST. TECHNICAL DOCUMENTATION: JOB ID: [id number] [employer]- All Rights Reserved Reading location - IP/workstation name: [email or web address]
[2017-12-16] MEDS ORDERED: ACETAMINOPHEN 325 MG TABLET PO ONE (18:51)
[2017-12-16] MEDS ORDERED: KETOROLAC TROMETHAMINE INJ/PF 30 MG/1 ML SDV IV ONE (18:51)
--- NOTE | 2017-12-16 18:56 | ER Document Report ---
ED General - General Chief Complaint: Dizziness Stated Complaint: HEADACHE,NAUSEA,MUSCLE PAIN Time Seen by Provider: 12/16/17 17:55 Mode of Arrival: Wheelchair Notes: Patient is a 42-year-old female with history of morbid obesity and non-insulin- dependent diabetes who presents with 4 days of generalized fatigue, body aches, nausea, and 1 day of cough. Patient states 4 days ago she was seen and treated by a urgent care physician for possible herpes zoster to her right leg. She states she took 1 dose of valacyclovir and began to feel very ill and has not felt well since that time. She has not taken any additional doses of this medication. She notes that the area seems have overall improved since onset but does continue to have a dull, throbbing, burning pain. She was unaware that she had a fever until she came here to the emergency department. She denies any actual vomiting. No abdominal pain, headache, neck pain, or altered mental status although she does note that she has some mild head discomfort when she vigorously coughs. She denies any history of similar symptoms in the past. TRAVEL OUTSIDE OF THE [place] IN LAST 30 DAYS: No - Related Data Allergies/Adverse Reactions: Penicillins Allergy (Verified 12/16/17 17:35) valacyclovir Allergy (Verified 12/16/17 17:36) Past Medical History - General Information source: Patient, Relative - Social History Smoking Status: Never Smoker Frequency of alcohol use: None Drug Abuse: None Lives with: Spouse/Significant other Family History: Hypertension Patient has suicidal ideation: No Patient has homicidal ideation: No - Past Medical History Cardiac Medical History: Denies: Hx DVT, Hx Hypertension, Hx Pulmonary Embolism Neurological Medical History: Reports: Hx Migraine Endocrine Medical History: Reports: Hx Hypothyroidism Renal/ Medical History: Denies: Hx Peritoneal Dialysis Psychiatric Medical History: Reports: Hx Bipolar Disorder, Hx Depression - Anxiety Past Surgical History: Reports: Hx Appendectomy, Hx Cholecystectomy, Hx Hysterectomy, Other - thyroid Review of Systems - Review of Systems Notes: Constitutional: Positive for fever. HENT: Negative for sore throat. Eyes: Negative for visual changes. Cardiovascular: Negative for chest pain. Respiratory: Negative for shortness of breath. Positive for cough Gastrointestinal: Negative for abdominal pain, vomiting or diarrhea. Genitourinary: Negative for dysuria. Musculoskeletal: Negative for back pain. Skin: Positive for rash. Neurological: Negative for headaches, weakness or numbness. 10 point ROS negative except as marked above and in HPI. Physical Exam - Vital signs Vitals: Temp Pulse Resp BP Pulse Ox 100.8 F H 103 H 16 97/72 L 98 12/16/17 17:41 12/16/17 17:41 12/16/17 17:41 12/16/17 17:41 12/16/17 17:41 Interpretation: Tachycardic, Febrile Notes: PHYSICAL EXAMINATION: GENERAL: Appears mildly ill but in no acute distress HEAD: Atraumatic, normocephalic. EYES: Pupils equal round and reactive to light, extraocular movements intact, sclera anicteric, conjunctiva are normal. ENT: nares patent, oropharynx clear without exudates. Moderately dry mucous membranes. NECK: Normal range of motion, supple without lymphadenopathy LUNGS: Breath sounds clear to auscultation bilaterally and equal. No wheezes rales or rhonchi. HEART: Regular tachycardia without murmurs ABDOMEN: Soft, nontender, normoactive bowel sounds. No guarding, no rebound. No masses appreciated. EXTREMITIES: no pitting or edema. No cyanosis. NEUROLOGICAL: No focal neurological deficits. Moves all extremities spontaneously and on command. PSYCH: Normal mood, normal affect. SKIN: Warm, Dry, normal turgor, multiple erythematous, raised lesions of the medial right posterior hamstring region with mild surrounding erythema. Course - Re-evaluation Re-evalutation: 12/16/17 18:51 Patient is a 42 year old female presenting with multiple complaints including generalized fatigue, cough, body aches, and a rash to her right posterior hamstring area that was apparently present prior diagnosed as herpes zoster. The lesions themselves are nonvesicular and the patient denies ever having a vesicular appearance. There is no crusting in the distribution would be highly atypical for a herpes zoster. She moreover has not completed antiviral treatment regimen as apparently she had an adverse reaction to the valacyclovir that she was prescribed yet it appears to have resolved. I am quite skeptical that the initial lesions were actually herpes zoster as it appears much more consistent with an acute folliculitis. Patient has had a mild cough although the chest x-ray is not consistent with an acute pneumonia nor are her vitals without any tachypnea or hypoxia. Her initial vitals do however suggests possible sepsis with a fever to 100.8, tachycardia and a borderline hypotension. Will therefore obtain a full panel of laboratories including blood and urine cultures, provide IV fluids, placed patient on dental laboratory technician and reassess the patient. I do not clinically suspect encephalitis or meningitis at this time point as I do not suspect that there was a zoster the initial presentation and moreover patient does not have any symptoms suggest this diagnosis. She currently denies a headache to me although states that her head does hurt when she coughs hard. She has no meningismus, no limited neck range of motion, GCS 15, no focal neurologic deficits. Will therefore avoid a lumbar puncture at this time as I believe the risks outweigh the benefits currently. 12/16/17 19:12 Patient has show me a picture of the initial lesions and they are indeed not consistent with herpes zoster. These are consistent with a folliculitis which means the patient could have subsequently developed sepsis in the setting of untreated cellulitis with associated folliculitis. 12/16/17 20:57 Patient's vitals have dramatically improved. She over all appears much better and states she feels improved from when she came in. She is no longer tachycardic, blood pressure is normal at 101 and 62. Labs are all unremarkable without any significant leukocytosis, bandemia, renal dysfunction or liver dysfunction. Will treat with a dose of ceftriaxone given patient's initial presentation and sent home on cephalexin to treat the localized area of cellulitis on her right leg. At this time will discharge with return precautions and follow-up recommendations. Verbal discharge instructions given a the bedside and opportunity for questions given. Medication warnings reviewed. Patient is in agreement with this plan and has verbalized understanding of return precautions and the need for primary care follow-up in the next 24-72 hours. 12/17/17 00:06 Last recorded blood pressure is not accurate. The last blood pressure recorded was 101/62. - Vital Signs Vital signs: Temp Pulse Resp BP Pulse Ox 98.0 F 76 17 98/60 L 96 12/16/17 21:25 12/16/17 21:25 12/16/17 21:25 12/16/17 21:25 12/16/17 19:17 - Laboratory Result Diagrams: 12/16/17 18:55 12/16/17 18:55 Laboratory results interpreted by me: 12/16/17 12/16/17 12/16/17 18:55 18:55 19:10 WBC 12.9 H Absolute Neutrophils 9.0 H Glucose 116 H Urine Blood SMALL H Ur Leukocyte Esterase TRACE H - Diagnostic Test Radiology reviewed: Image reviewed, Reports reviewed Radiology results interpreted by me: 12/16/17 18:53 Chest x-ray: No acute infiltrate or pneumothorax Discharge - Discharge Clinical Impression: Cellulitis of right leg, Body aches Fatigue Qualifiers: Fatigue type: unspecified Qualified Code(s): R53.83 - Other fatigue Condition: Good Disposition: HOME, SELF-CARE Additional Instructions: The rash is likely due to infection of your skin. You need to take the antibiotics as prescribed. Do not stop even if the rash goes away until you have completed all the antibiotics. The area of redness was traced out here in the emergency department with a marking pen. You need to return to emergency department if the redness spreads outside of this area by more than 2 cm in any direction. You should also return if you develop fevers with temperature greater than 101, persistent vomiting, worsening pain, or have any other symptoms that are concerning to you. Prescriptions: Cephalexin Monohydrate [Keflex 500 mg Capsule] 500 mg PO Q6H 5 Days #7 capsule Forms: Parent Work Note, Return to Work
[2017-12-16 19:27] LABS: ABSOLUTE BASOPHILS # (AUTO) 0.1 10^3/uL (0.0-0.2); ABSOLUTE EOSINOPHILS # (AUTO) 0.3 10^3/uL (0.0-0.6); ABSOLUTE MONOCYTES (AUTO) 0.5 10^3/uL (0.1-1.4); BASOPHILS % (AUTO) 0.4 % (0-2); EOSINOPHILS % (AUTO) 2.4 % (0-6); HEMATOCRIT 37.3 % (36.0-47.0); HEMOGLOBIN 12.4 g/dL (12.0-15.5); LYMPHOCYTES % (AUTO) 23.5 % (13-45); MEAN CORPUSCULAR HEMOGLOBIN 30.9 pg (27.0-33.4); MEAN CORPUSCULAR HGB CONC 33.3 g/dL (32.0-36.0); MEAN CORPUSCULAR VOLUME 93 fl (80-97); MONOCYTES % (AUTO) 3.9 % (3-13); PLATELET COUNT 258 10^3/uL (150-450); RED BLOOD COUNT 4.02 10^6/uL (3.72-5.28); RED CELL DISTRIBUTION WIDTH 13.1 % (11.5-14.0); SEGMENTED NEUTROPHILS % (AUTO) 69.8 % (42-78); TOTAL CELLS COUNTED % (AUTO) 100 %; WHITE BLOOD COUNT 12.9 10^3/uL (4.0-10.5)
[2017-12-16 19:32] LABS: APPEARANCE,URINE CLOUDY; BILIRUBIN,URINE NEGATIVE (NEGATIVE); COLOR,URINE YELLOW; GLUCOSE, URINE NEGATIVE (NEGATIVE); KETONES,URINE NEGATIVE (NEGATIVE); LEUKOCYTE ESTERASE,URINE TRACE (NEGATIVE); NITRITE,URINE NEGATIVE (NEGATIVE); PROTEIN,URINE NEGATIVE (NEGATIVE); URINE SPECIFIC GRAVITY 1.025; UROBILINOGEN,URINE NEGATIVE mg/dL (<2.0)
[2017-12-16 19:36] LABS: ALANINE AMINOTRANSFERASE 18 U/L (9-52); ALBUMIN 4.1 g/dL (3.5-5.0); ALKALINE PHOSPHATASE 67 U/L (38-126); ANION GAP 13 (5-19); ASPARTATE AMINO TRANSFERASE 15 U/L (14-36); BILIRUBIN,DIRECT 0.3 mg/dL (0.0-0.4); BILIRUBIN,TOTAL 0.6 mg/dL (0.2-1.3); BLOOD UREA NITROGEN 17 mg/dL (7-20); CALCIUM 9.2 mg/dL (8.4-10.2); CARBON DIOXIDE 25 mmol/L (22-30); CHLORIDE 106 mmol/L (98-107); GLUCOSE 116 mg/dL (75-110); POTASSIUM 3.8 mmol/L (3.6-5.0); SODIUM 144.1 mmol/L (137-145); TOTAL PROTEIN 7.5 g/dL (6.3-8.2)
[2017-12-16] MEDS ORDERED: CEFTRIAXONE INJ 1000 MG VIAL IV ONE (20:43)
== END 2017-12-16 21:35 | disposition home or self-care (01) ==
LOC: ER 17:31
DX: L03.115 Cellulitis of right lower limb (principal); M79.1 Myalgia; R53.83 Other fatigue; R42 Dizziness and giddiness; R51 Headache; R11.0 Nausea; R05 Cough; E66.01 Morbid (severe) obesity due to excess calories; E11.9 Type 2 diabetes mellitus without complications
CPT/HCPCS: 99284; 96361; 96375; 96365; 36415; 87040; 87086; 84703; 85025; 80053; 81001; 71046; J1885; J0696; J7030

== ENCOUNTER 2017-12-18 20:43 | Emergency (ER) | payer BC ==
[2017-12-18] MEDS ORDERED: NORMAL SALINE 1000 ML 1,000 ML IV ONE (21:44)
[2017-12-18] MEDS ORDERED: HALOPERIDOL LACTATE INJ 5 MG/1 ML VIAL IV ONE (21:45)
[2017-12-18 22:18] LABS: ABSOLUTE EOSINOPHILS # (AUTO) 0.4 10^3/uL (0.0-0.6); ABSOLUTE MONOCYTES (AUTO) 0.4 10^3/uL (0.1-1.4); ABSOLUTE NEUT (AUTO) 3.6 10^3/uL (1.7-8.2); BASOPHILS % (AUTO) 0.6 % (0-2); EOSINOPHILS % (AUTO) 5.3 % (0-6); HEMATOCRIT 34.3 % (36.0-47.0); HEMOGLOBIN 11.8 g/dL (12.0-15.5); LYMPHOCYTES % (AUTO) 40.2 % (13-45); MEAN CORPUSCULAR HGB CONC 34.6 g/dL (32.0-36.0); MEAN CORPUSCULAR VOLUME 93 fl (80-97); PLATELET COUNT 256 10^3/uL (150-450); RED CELL DISTRIBUTION WIDTH 13.2 % (11.5-14.0); SEGMENTED NEUTROPHILS % (AUTO) 48.9 % (42-78); TOTAL CELLS COUNTED % (AUTO) 100 %; WHITE BLOOD COUNT 7.4 10^3/uL (4.0-10.5)
[2017-12-18 22:30] LABS: VENOUS BLOOD BASE EXCESS -1.5 mmol/L; VENOUS BLOOD HCO3 23.7 mmol/L (20-32); VENOUS BLOOD PCO2 42.7 mmHg (35-63); VENOUS BLOOD PH 7.36 (7.30-7.42)
--- NOTE | 2017-12-18 22:35 | ER Document Report ---
ED General - General Chief Complaint: Nausea/Vomiting Stated Complaint: VOMITING Time Seen by Provider: 12/18/17 21:43 Notes: Patient is a 42-year-old female with a past medical history of non-insulin- dependent diabetes, recently seen by me for a folliculitis with associated sirs criteria who presents with some dizziness and nausea today. The patient states that she felt very well yesterday, was out in the sun and kayaking most of the day. She states that today she progressively felt more fatigued, somewhat lightheaded with associated nausea but no vomiting. She notes the area of rash is much improved relative to being here 2 days ago and is no longer painful. She has not had any recurrent fever. She notes that she has been able to eat and drink without difficulty. She has not noted that anything other than overexerting herself seems to have worsened her symptoms. She states when she rests and drinks plenty of fluid it does seem to improve her symptoms. She has not yet followed up with her primary care doctor regarding the prior visit. TRAVEL OUTSIDE OF THE [place] IN LAST 30 DAYS: No - Related Data Allergies/Adverse Reactions: Penicillins Allergy (Verified 12/16/17 17:35) valacyclovir Allergy (Verified 12/16/17 17:36) Past Medical History - General Information source: Patient - Social History Smoking Status: Never Smoker Chew tobacco use (# tins/day): No Frequency of alcohol use: Occasional Drug Abuse: None Lives with: Spouse/Significant other Family History: Hypertension Patient has suicidal ideation: No Patient has homicidal ideation: No - Past Medical History Cardiac Medical History: Denies: Hx DVT, Hx Hypertension, Hx Pulmonary Embolism Neurological Medical History: Reports: Hx Migraine Endocrine Medical History: Reports: Hx Hypothyroidism Renal/ Medical History: Denies: Hx Peritoneal Dialysis Psychiatric Medical History: Reports: Hx Bipolar Disorder, Hx Depression - Anxiety Past Surgical History: Reports: Hx Appendectomy, Hx Cholecystectomy, Hx Hysterectomy, Hx Thyroid Surgery - removed, Other - thyroid Review of Systems - Review of Systems Notes: Constitutional: Negative for fever. HENT: Negative for sore throat. Eyes: Negative for visual changes. Cardiovascular: Negative for chest pain. Respiratory: Negative for shortness of breath. Gastrointestinal: Negative for abdominal pain, positive for nausea Genitourinary: Negative for dysuria. Musculoskeletal: Negative for back pain. Skin: Positive for rash. Neurological: Negative for headaches, weakness or numbness. 10 point ROS negative except as marked above and in HPI. Physical Exam - Vital signs Vitals: Temp Pulse Resp BP Pulse Ox 98.8 F 77 16 112/75 97 12/18/17 20:57 12/18/17 20:57 12/18/17 20:57 12/18/17 20:57 12/18/17 20:57 Interpretation: Normal Notes: PHYSICAL EXAMINATION: GENERAL: Well-appearing, well-nourished and in no acute distress. HEAD: Atraumatic, normocephalic. EYES: Pupils equal round and reactive to light, extraocular movements intact, sclera anicteric, conjunctiva are normal. ENT: nares patent, oropharynx clear without exudates. Moderately dry mucous membranes. NECK: Normal range of motion, supple without lymphadenopathy LUNGS: Breath sounds clear to auscultation bilaterally and equal. No wheezes rales or rhonchi. HEART: Regular rate and rhythm without murmurs ABDOMEN: Soft, nontender, normoactive bowel sounds. No guarding, no rebound. No masses appreciated. EXTREMITIES: Normal range of motion, no pitting or edema. No cyanosis. NEUROLOGICAL: No focal neurological deficits. Moves all extremities spontaneously and on command. PSYCH: Normal mood, normal affect. SKIN: Warm, Dry, normal turgor, area of folliculitis on the posterior right quadricep region appears much improved relative to my prior assessment Course - Re-evaluation Re-evalutation: 12/18/17 22:32 Patient presents with some ongoing dizziness and lightheadedness although she notes she overall still feels much better than when I saw her previously. The patient did contact me by phone today and stated that she was started to feel worse and I asked her to come back in for reassessment. On presentation her vitals are much improved from her prior assessment. No evidence of hypertension or tachycardia. She is afebrile. Her white count has normalized. The remainder of her labs likewise are much improved. The area of folliculitis with an associated cellulitis on the right lower extremity also appears much better. I suspect that the patient may have overexerted herself yesterday as when I contacted her yesterday she was kayaking and out in the sun most of the day. I have asked her to continue to rest and be cautious about overexerting herself in the context of being ill. She has been instructed to continue taking the cephalexin that was prescribed at her previous visit. She has tolerated oral intake without difficulty. The remainder of her examination is otherwise unremarkable. At this time will discharge with return precautions and follow-up recommendations. Verbal discharge instructions given a the bedside and opportunity for questions given. Medication warnings reviewed. Patient is in agreement with this plan and has verbalized understanding of return precautions and the need for primary care follow-up in the next 24-72 hours. - Vital Signs Vital signs: Temp Pulse Resp BP Pulse Ox 97.6 F 63 14 112/76 99 12/18/17 23:34 12/18/17 23:34 12/18/17 23:34 12/18/17 23:34 12/18/17 23:34 - Laboratory Result Diagrams: 12/18/17 22:04 12/18/17 22:04 Laboratory results interpreted by me: 12/18/17 12/18/17 22:04 22:04 RBC 3.70 L Hgb 11.8 L Hct 34.3 L Sodium 146.4 H Chloride 109 H Glucose 116 H Total Bilirubin < 0.1 L Discharge - Discharge Clinical Impression: Cellulitis of right leg, Dehydration, Lightheadedness Fatigue Qualifiers: Fatigue type: unspecified Qualified Code(s): R53.83 - Other fatigue Condition: Good Disposition: HOME, SELF-CARE Additional Instructions: Please be cautious about overexerting yourself as you are still sick need to continue to rest. Continue to take the antibiotics that were prescribed on your previous visit. You may take Tylenol or ibuprofen as needed for discomfort per box instructions. Your labs and vitals are better than your previous visit and I think you are continuing to improve. Return if you develop recurrent fever of greater than 100.4F, persistent vomiting, worsening of the area of sialitis in the right leg, pass out, or have any other symptoms that are worrisome to you. Forms: Return to Work
[2017-12-18 23:10] LABS: ALANINE AMINOTRANSFERASE 20 U/L (9-52); ALBUMIN 3.8 g/dL (3.5-5.0); ALKALINE PHOSPHATASE 64 U/L (38-126); ANION GAP 13 (5-19); ASPARTATE AMINO TRANSFERASE 15 U/L (14-36); BLOOD UREA NITROGEN 15 mg/dL (7-20); CALCIUM 8.9 mg/dL (8.4-10.2); CARBON DIOXIDE 24 mmol/L (22-30); CHLORIDE 109 mmol/L (98-107); GLUCOSE 116 mg/dL (75-110); POTASSIUM 4.1 mmol/L (3.6-5.0); SODIUM 146.4 mmol/L (137-145)
[2017-12-18 23:26] LABS: BILIRUBIN,TOTAL < 0.1 mg/dL (0.2-1.3)
[2017-12-18 23:37] VITALS: BP 112/76
== END 2017-12-18 23:40 | disposition home or self-care (01) ==
LOC: ER 20:43
DX: L03.115 Cellulitis of right lower limb (principal); E86.0 Dehydration; R42 Dizziness and giddiness; R53.83 Other fatigue; R11.2 Nausea with vomiting, unspecified; E11.9 Type 2 diabetes mellitus without complications; E03.9 Hypothyroidism, unspecified; Z90.49 Acquired absence of other specified parts of digestive tract; Z90.710 Acquired absence of both cervix and uterus
CPT/HCPCS: 99284; 96361; 96374; 36415; 83605; 85025; 80053; 82803; J1630; J7030

== ENCOUNTER 2018-08-05 12:41 | Emergency (ER) | payer SELFPAY ==
[2018-08-05] MEDS ORDERED: ADENOSINE INJ/PF 6 MG/2 ML SDV IV ONE (12:58)
[2018-08-05] MEDS ORDERED: DILTIAZEM HCL INJ 25 MG/5 ML VIAL ONE (13:02)
[2018-08-05] MEDS ORDERED: METOPROLOL TARTRATE PF/INJ 5 MG/5 ML SDV IV ONE (13:14)
[2018-08-05] MEDS ORDERED: NORMAL SALINE 1000 ML 1,000 ML IV ONE (13:14)
--- NOTE | 2018-08-05 13:19 | ER Document Report ---
ED Cardiac - General Chief Complaint: Chest Pain Stated Complaint: CHEST PAIN Time Seen by Provider: 08/05/18 13:01 Information source: Patient Notes: 42-year-old female who states the sudden onset of palpitations and some mild discomfort in her chest. She denies any radiation of the pain. She denies any aggravating or relieving factors. She states she does have a history of some intermittent palpitations with negative Holter monitors by cardiology. She denies any calf pain, leg swelling, recent trips or travel. She denies any recent runny nose, congestion, or cough. Patient had her thyroid removed around 2 years ago. TRAVEL OUTSIDE OF THE [place] IN LAST 30 DAYS: No - HPI Patient complains to provider of: Other - See above Use of: Other - See above Was the onset of pain: Sudden Chest pain location: Other - See above Quality of pain: Other Severity now: Mild Severity at worst: Mild Pain level currently: Denies Associated symptoms: Other - See above Exacerbated by: Denies Relieved by: Nothing Similar symptoms previously: No Recently seen / treated by doctor: No - Related Data Allergies/Adverse Reactions: Penicillins Allergy (Verified 12/16/17 17:35) valacyclovir Allergy (Verified 12/16/17 17:36) Past Medical History - Social History Smoking Status: Never Smoker Chew tobacco use (# tins/day): No Drug Abuse: None Family History: Hypertension Patient has suicidal ideation: No Patient has homicidal ideation: No - Past Medical History Cardiac Medical History: Denies: Hx DVT, Hx Hypertension, Hx Pulmonary Embolism Neurological Medical History: Reports: Hx Migraine Endocrine Medical History: Reports: Hx Hypothyroidism Renal/ Medical History: Denies: Hx Peritoneal Dialysis Psychiatric Medical History: Reports: Hx Bipolar Disorder, Hx Depression - A nxiety Past Surgical History: Reports: Hx Appendectomy, Hx Cholecystectomy, Hx Hysterectomy, Hx Thyroid Surgery - removed, Other - thyroid Review of Systems - Review of Systems Constitutional: denies: Fever EENT: denies: Eye discharge, Nose discharge Cardiovascular: denies: Syncope, Dizziness, Lightheaded Respiratory: Short of breath Gastrointestinal: denies: Vomiting Genitourinary: denies: Dysuria Musculoskeletal: denies: Leg swelling Skin: Other - no hives. denies: Rash Neurological/Psychological: Other - no slurred speech -: Yes All other systems reviewed and negative Physical Exam - Vital signs Vitals: Resp Pulse Ox 23 H 97 08/05/18 13:00 08/05/18 13:00 Notes: Reviewed vital signs and nursing note as charted by RN. CONSTITUTIONAL: Alert and oriented and responds appropriately to questions. Well-appearing; well-nourished HEAD: Normocephalic; atraumatic EYES: PERRL; Conjunctivae clear, sclerae non-icteric ENT: Normal nose; no rhinorrhea; moist mucous membranes; pharynx without lesions noted NECK: Supple without meningismus; non-tender; old surgical scar consistent with surgery CARD: Tachycardic and regular; no murmurs; symmetric distal pulses RESP: Normal chest excursion without splinting or tachypnea; breath sounds clear and equal bilaterally; no wheezes, no rhonchi, no rales ABD/GI: Normal bowel sounds; non-distended; soft, non-tender; no palpable organomegaly or masses BACK: The back appears normal and is non-tender to palpation EXT: Normal ROM in all joints; non-tender to palpation; no edema SKIN: No acute lesions noted NEURO: CN 2-12 intact; 5/5 bilateral upper and lower extremity strength with sensation intact to light touch PSYCH: The patient's mood and manner are appropriate. Grooming and personal hygiene are appropriate. Course - Re-evaluation Re-evalutation: Given the history and physical examination with the heart rate and blood pressure as recorded, patient was expedited to room 20 and placed on the monitor with an EKG as recorded. Given the lack of any recent trips, travel, estrogens, calf pain or leg swelling, with the abrupt onset, with intermittent palpitations, with no P waves present on the EKG, I do believe pulmonary embolism to be less likely than SVT. EKG shows a heart of 164, no apparent P waves present, very regular rhythm, minimal ST depressions to leads I, aVL, V3 through V6. Most likely rate related. 08/05/18 13:18 I performed a modified Valsalva maneuver with spontaneous conversion of SVT into normal sinus rhythm. Patient is chest pain-free with improved blood pressure. I will provide a dose of Lopressor intravenously and obtain basic labs and electrolytes as well as a TSH. If the patient continues to feel excellent, patient will be discharged home with cardiology follow-up, a copy of the EKG, with strict return precautions. 08/05/18 14:15 Labs and TSH as recorded. I will add on a free T3, T4, and thyroglobulin binding hormone and have the patient hold her thyroid hormones until reevaluated by the PCP. I will also refer the patient to the cardiology team and start the patient on a low-dose daily metoprolol. Strict return precautions have been explained to the patient and significant other. - Vital Signs Vital signs: Temp Pulse Resp BP Pulse Ox 82 25 H 112/76 99 08/05/18 13:15 08/05/18 14:01 08/05/18 14:01 08/05/18 14:01 - Laboratory Result Diagrams: 08/05/18 13:02 08/05/18 13:02 Laboratory results interpreted by me: 08/05/18 08/05/18 13:02 13:02 Seg Neutrophils % 38.9 L Lymphocytes % 48.9 H TSH 0.03 L Critical Care Note - Critical Care Note Total time excluding time spent on procedures (mins): 35 Discharge - Discharge Clinical Impression: SVT (supraventricular tachycardia), Low TSH level Condition: Good Disposition: HOME, SELF-CARE Additional Instructions: Come back immediately for any return of palpitations, any chest pain, weakness or numbness, leg swelling, shortness of breath or fever, or any other acute problems. Please make sure that you follow-up with the primary care provider regarding your thyroid levels that we have ordered as well as the liability analyst as provided. Prescriptions: Metoprolol Tartrate [Lopressor 25 mg Tablet] 25 mg PO DAILY #30 tab Referrals: MAI WORRELL MD [Primary Care Provider] - Follow up as needed JADON MARSHALL MD [ACTIVE STAFF] - Follow up as needed
[2018-08-05 13:33] LABS: ABSOLUTE EOSINOPHILS # (AUTO) 0.3 10^3/uL (0.0-0.6); ABSOLUTE LYMPHOCYTES (AUTO) 2.9 10^3/uL (0.5-4.7); ABSOLUTE MONOCYTES (AUTO) 0.4 10^3/uL (0.1-1.4); ABSOLUTE NEUT (AUTO) 2.3 10^3/uL (1.7-8.2); BASOPHILS % (AUTO) 0.6 % (0-2); EOSINOPHILS % (AUTO) 4.8 % (0-6); HEMATOCRIT 39.6 % (36.0-47.0); HEMOGLOBIN 13.6 g/dL (12.0-15.5); LYMPHOCYTES % (AUTO) 48.9 % (13-45); MEAN CORPUSCULAR HEMOGLOBIN 30.3 pg (27.0-33.4); MEAN CORPUSCULAR HGB CONC 34.4 g/dL (32.0-36.0); MEAN CORPUSCULAR VOLUME 88 fl (80-97); MONOCYTES % (AUTO) 6.8 % (3-13); PLATELET COUNT 321 10^3/uL (150-450); RED BLOOD COUNT 4.49 10^6/uL (3.72-5.28); RED CELL DISTRIBUTION WIDTH 12.3 % (11.5-14.0); SEGMENTED NEUTROPHILS % (AUTO) 38.9 % (42-78); TOTAL CELLS COUNTED % (AUTO) 100 %
[2018-08-05 13:40] LABS: ANION GAP 8 (5-19); BLOOD UREA NITROGEN 15 mg/dL (7-20); CALCIUM 9.4 mg/dL (8.4-10.2); CARBON DIOXIDE 29 mmol/L (22-30); CHLORIDE 105 mmol/L (98-107); GLUCOSE 102 mg/dL (75-110); POTASSIUM 4.4 mmol/L (3.6-5.0); SODIUM 142.1 mmol/L (137-145)
[2018-08-05 14:02] VITALS: BP 112/76
[2018-08-05 15:03] LABS: FREE T3 8.83 pg/mL (2.77-5.27); FREE T4 (FREE THYROXINE) 2.27 ng/dL (0.78-2.19)
--- NOTE | 2018-08-05 18:35 | EKG REPORT ---
SEVERITY:- NORMAL ECG - SINUS RHYTHM : Confirmed by: Bob Goss 05-Aug-2018 18:35:17
--- NOTE | 2018-08-05 18:37 | EKG REPORT ---
SEVERITY:- ABNORMAL ECG - SINUS TACHYCARDIA VS A FLUTTER WITH 2:1 CONDUCTION REPOL ABNRM SUGGESTS ISCHEMIA, DIFFUSE LEADS BORDERLINE PROLONGED QT INTERVAL : Confirmed by: Bob Goss 05-Aug-2018 18:36:13
== END 2018-08-05 14:35 | disposition home or self-care (01) ==
LOC: ER 12:41
DX: I47.1 Supraventricular tachycardia (principal); R94.6 Abnormal results of thyroid function studies; R07.9 Chest pain, unspecified; R00.2 Palpitations
CPT/HCPCS: 93005; 99291; 96374; 36415; 84439; 84443; 85025; 80048; 84481; 84479; 93010; J3490; J7030

== ENCOUNTER 2019-07-16 14:38 | Emergency (ER) | payer SELFPAY ==
--- NOTE | 2019-07-16 14:54 | ER Document Report ---
ED Medical Screen (RME) - General Chief Complaint: Sore Throat Stated Complaint: SORE THROAT Time Seen by Provider: 07/16/19 14:51 Primary Care Provider: MAI WORRELL MD [Primary Care Provider] - Follow up as needed Mode of Arrival: Ambulatory Information source: Patient Notes: 43-year-old female presents emergency department with reports that she feels like something stuck in her throat. She reports that every time she tries to eat food comes back up. She reports symptoms for the past week but worsened today. Reports unable to swallow today. Denies past medical history of esophageal spasms denies history of diabetes. Does not remember eating anything that got stuck in her throat. I have greeted and performed a rapid initial assessment of this patient. A comprehensive ED assessment and evaluation of the patient, analysis of test results and completion of the medical decision making process will be conducted by additional ED providers. TRAVEL OUTSIDE OF THE [place] IN LAST 30 DAYS: No - Related Data Allergies/Adverse Reactions: Penicillins Allergy (Verified 12/16/17 17:35) valacyclovir Allergy (Verified 12/16/17 17:36) Past Medical History - Social History Family history: None - Past Medical History Cardiac Medical History: Denies: Hx DVT, Hx Hypertension, Hx Pulmonary Embolism Neurological Medical History: Reports: Hx Migraine Endocrine Medical History: Reports: Hx Hypothyroidism Renal/ Medical History: Denies: Hx Peritoneal Dialysis Psychiatric Medical History: Reports: Hx Bipolar Disorder, Hx Depression - Anxiety Past Surgical History: Reports: Hx Appendectomy, Hx Cholecystectomy, Hx Hysterectomy, Hx Thyroid Surgery - removed, Other - thyroid Doctor's Discharge - Discharge Referrals: MAI WORRELL MD [Primary Care Provider] - Follow up as needed
[2019-07-16] MEDS ORDERED: GLUCAGON,HUMAN RECOMB 1 MG INJ IV ONE (15:00)
[2019-07-16 16:04] LABS: ABSOLUTE EOSINOPHILS # (AUTO) 0.3 10^3/uL (0.0-0.6); ABSOLUTE LYMPHOCYTES (AUTO) 3.6 10^3/uL (0.5-4.7); ABSOLUTE MONOCYTES (AUTO) 0.4 10^3/uL (0.1-1.4); BASOPHILS % (AUTO) 0.5 % (0-2); EOSINOPHILS % (AUTO) 3.7 % (0-6); HEMATOCRIT 41.7 % (36.0-47.0); HEMOGLOBIN 14.2 g/dL (12.0-15.5); LYMPHOCYTES % (AUTO) 38.5 % (13-45); MEAN CORPUSCULAR HEMOGLOBIN 29.9 pg (27.0-33.4); MEAN CORPUSCULAR HGB CONC 34.1 g/dL (32.0-36.0); MEAN CORPUSCULAR VOLUME 88 fl (80-97); MONOCYTES % (AUTO) 3.8 % (3-13); PLATELET COUNT 272 10^3/uL (150-450); RED BLOOD COUNT 4.75 10^6/uL (3.72-5.28); RED CELL DISTRIBUTION WIDTH 13.4 % (11.5-14.0); SEGMENTED NEUTROPHILS % (AUTO) 53.5 % (42-78); TOTAL CELLS COUNTED % (AUTO) 100 %; WHITE BLOOD COUNT 9.4 10^3/uL (4.0-10.5)
[2019-07-16 16:15] LABS: ALBUMIN 4.3 g/dL (3.5-5.0); ALKALINE PHOSPHATASE 70 U/L (38-126); ANION GAP 14 (5-19); ASPARTATE AMINO TRANSFERASE 20 U/L (14-36); BILIRUBIN,DIRECT 0.3 mg/dL (0.0-0.4); BILIRUBIN,TOTAL 0.3 mg/dL (0.2-1.3); BLOOD UREA NITROGEN 19 mg/dL (7-20); CALCIUM 9.3 mg/dL (8.4-10.2); CARBON DIOXIDE 29 mmol/L (22-30); CHLORIDE 99 mmol/L (98-107); GLUCOSE 103 mg/dL (75-110); POTASSIUM 4.2 mmol/L (3.6-5.0); TOTAL PROTEIN 7.8 g/dL (6.3-8.2)
--- NOTE | 2019-07-16 16:38 | RADIOLOGY REPORT (SQ) ---
EXAM DESCRIPTION: CT SOFT TISSUE NECK WITH COMPLETED DATE/TIME: 07/16/2019 4:11 pm REASON FOR STUDY: diff swallowing ? fb COMPARISON: None. TECHNIQUE: Post IV contrasted scanning from skull base through lung apices with review of bone, soft tissue and lung windows. Reconstructed coronal and sagittal MPR images reviewed. All images stored on PACS. All CT scanners at this facility use dose modulation, iterative reconstruction, and/or weight based d osing when appropriate to reduce radiation dose to as low as reasonably achievable (ALARA). [facility]: Dose Right [facility]: CareDose [facility]: Dose Right [facility]: Teradose 4D [facility]: [employer] CONTRAST TYPE AND DOSE: contrast/concentration: Isovue 350.00 mg/ml; Total Contrast Delivered: 75.0 ml; Total Saline Delivered: 55.0 ml RENAL FUNCTION: None required. The patient is less than 50 years old. RADIATION DOSE: CT Rad equipment meets quality standard of care and radiation dose reduction techniq ues were employed. CTDIvol: 16.2 mGy. DLP: 502 mGy-cm. . LIMITATIONS: None. FINDINGS: SKULL BASE: Intact. MAJOR SALIVARY GLANDS: No solid or cystic masses. No inflammatory changes. LYMPHADENOPATHY: No adenopathy. MUCOSAL MASSES OR ASYMMETRY: No mucosal masses or asymmetry. LARYNX/CORDS: No abnormal findings. VASCULAR STRUCTURES: The major vessels are patent. LUNG APICES: Clear. BONES: Intact. THYROID: Prior thyroidectomy. PARANASAL SINUSES: Clear. OTHER: No other significant finding. IMPRESSION: NO SIGNIFICANT FINDING IN THE SOFT TISSUES OF THE NECK. TECHNICAL DOCUMENTATION: JOB ID: [id number] [place]-72 Quality ID # [id number]: Final reports with documentation of one or more dose reduction techniques (e.g., Au tomated exposure control, adjustment of the mA and/or kV according to patient size, use of iterative reconstruction technique) 2010 [employer]- All Rights Reserved Reading location - IP/workstation name: [email or web address]
[2019-07-16 16:49] VITALS: BP 120/81
[2019-07-16] MEDS ORDERED: FAMOTIDINE 20 MG TABLET PO ONE (18:27)
[2019-07-16] MEDS ORDERED: METOCLOPRAMIDE HCL ORAL SOLN 10 MG/10 ML UDCUP PO ONE (18:27)
[2019-07-16] MEDS ORDERED: LIDOCAINE 2% VISCOUS SOLN 20 ML UDCUP PO ONE (18:27)
[2019-07-16] MEDS ORDERED: MAG HYDROX/AL HYDROX/SIMETH SUSP 30 ML UDCUP PO ONE (18:27)
--- NOTE | 2019-07-16 18:40 | ER Document Report ---
ED General - General Chief Complaint: Swallowed Foreign Body Stated Complaint: SORE THROAT Time Seen by Provider: 07/16/19 14:51 Primary Care Provider: MAI WORRELL MD [Primary Care Provider] - Follow up as needed Mode of Arrival: Ambulatory Notes: 43-year-old female presents emergency department complaining of inability to swallow. Patient states that for the past week she is been having increasing difficulty swallowing until today she ate some mushrooms at a luncheon around noon and they got stuck in her throat. States it took until 6 PM this evening for her to vomit them up. Patient states that normally she will eat, feels like food gets stuck in her throat and then she has to stretch her neck and burp before the food will come back up or go back down. Patient has no difficulty swallowing her own saliva when this happens. Patient states is been getting worse for the past week and is associated with an intense burning pain in her throat when it happens. The pain is unrelieved by Tums or Mylanta. Patient also states that she has been having increasing heartburn for the past week. Has a history of a normal swallow study in the past, has not had one within the past 6 months. Has not had an EGD ever. Does not take daily preventative antacids. TRAVEL OUTSIDE OF THE [place] IN LAST 30 DAYS: No - Related Data Allergies/Adverse Reactions: Penicillins Allergy (Verified 12/16/17 17:35) valacyclovir Allergy (Verified 12/16/17 17:36) Past Medical History - General Information source: Patient - Social History Smoking Status: Former Smoker Frequency of alcohol use: Rare Drug Abuse: None Family History: Hypertension Patient has suicidal ideation: No Patient has homicidal ideation: No - Past Medical History Cardiac Medical History: Denies: Hx DVT, Hx Hypertension, Hx Pulmonary Embolism Neurological Medical History: Reports: Hx Migraine Endocrine Medical History: Reports: Hx Hypothyroidism Renal/ Medical History: Denies: Hx Peritoneal Dialysis Psychiatric Medical History: Reports: Hx Bipolar Disorder, Hx Depression - Anxiety Past Surgical History: Reports: Hx Appendectomy, Hx Cholecystectomy, Hx Hysterectomy, Hx Thyroid Surgery - removed, Other - thyroid Review of Systems - Review of Systems Gastrointestinal: See HPI -: Yes All other systems reviewed and negative Physical Exam - Vital signs Vitals: Temp Pulse Resp BP Pulse Ox 98.0 F 90 16 120/81 100 07/16/19 16:47 07/16/19 16:47 07/16/19 16:47 07/16/19 16:47 07/16/19 16:47 Interpretation: Normal - Notes Notes: GENERAL: Alert, interacts well. Occasional burping, appears quite uncomfortable during the burping, otherwise comfortable and able to handle secretions. HEAD: Normocephalic, atraumatic EYES: Pupils equal, round and reactive to light, extraocular movements intact. ENT: Oral mucosa moist, tongue midline. NECK: Full range of motion, supple, trachea midline. LUNGS: Clear to auscultation bilaterally, no wheezes, rales or rhonchi, no respiratory distress. HEART: Regular rate and rhythm, no murmurs, gallops, rubs. ABDOMEN: Soft, right upper quadrant tenderness to palpation, no guarding, no rigidity, no rebound, nondistended, bowel sounds present in all 4 quadrants. EXTREMITIES: Moves all 4 extremities spontaneously, no edema, radial and dorsalis pedis pulses 2/4 bilaterally. No cyanosis. NEUROLOGICAL: Alert and oriented x3, normal speech. PSYCH: Normal mood, normal affect. SKIN: Warm, Dry, normal turgor, no rashes or lesions noted. Course - Re-evaluation Re-evalutation: 07/16/19 18:37 CBC unremarkable, CMP unremarkable, soft tissue neck CT scan does not reveal any mass. Patient was treated with glucagon, she then vomited up the mushrooms. She is now able to swallow liquids without difficulty. Still complains of pain in her throat. No evidence of esophageal rupture on CAT scan. Patient will be treated with GI cocktail and started on Zantac as an outpatient. Requested follow-up with surgery or GI for an EGD as an outpatient. Counseled on heartburn reducing medications as well as a heartburn reducing diet. Patient will be discharged home. - Vital Signs Vital signs: Temp Pulse Resp BP Pulse Ox 98.0 F 90 16 120/81 100 07/16/19 16:47 07/16/19 16:47 07/16/19 16:47 07/16/19 16:47 07/16/19 16:47 - Laboratory Result Diagrams: 07/16/19 15:30 07/16/19 15:30 Laboratory results interpreted by me: 07/16/19 15:30 Est GFR (MDRD) Non-Af 56 L Discharge - Discharge Clinical Impression: Esophageal food bolus stuck in throat Condition: Stable Disposition: HOME, SELF-CARE Additional Instructions: Reflux Disease (GERD) Gastro-Esophageal Reflux Disease (GERD) is caused by stomach acid refluxing back up into the esophagus. The valve at the end of the esophagus may be weak. This is common in persons with a hiatal hernia. GERD symptoms can include indigestion, chest pain, heartburn, or food "sticking." Certain foods, alcohol, and aspirin can make GERD worse. Treatment depends on the severity. Usually, antacids or acid-suppressing medicines are used. When the esophagus is acutely inflamed, the physician will often prescribe membrane-protective drugs such as Carafate. The Carafate will temporarily help relieve any pain from ulcerations in your throat or in your st omach. You must take all other medications at least 1 hour prior to taking the Carafate or else the other medications will not be absorbed. I have also prescribed Zantac or its generic equivalent ranitidine, please take 1 tablet twice a day until you follow-up with surgery or GI to have an EGD performed. Please chew your food thoroughly, take small bites and consider following a soft diet where you only eat things with a consistency similar to mashed potatoes or pudding. Avoid those foods that bring on your symptoms. For many people, these foods are coffee, chocolate, onions, garlic, tomatoes, citrus fruits, and carbonated drinks. Don't use alcohol, aspirin, caffeine, or tobacco. Don't eat late at night -- within 4 hours of bedtime. Don't over-eat. If necessary, elevate the head of your bed about 4 inches so that stomach acid will not roll up into your esophagus. Call the doctor if you develop severe chest pain, inability to swallow fluids, fever, or worsening symptoms. Prescriptions: Sucralfate [Carafate Susp 1 Gm/10 Ml Udcup] 1 gm PO ACHS #30 udc Ranitidine HCl [Zantac] 150 mg PO BID #30 tablet Referrals: MAI WORRELL MD [Primary Care Provider] - Follow up as needed GILBERTO LYNN MD [ACTIVE STAFF] - Follow up as needed
== END 2019-07-16 18:50 | disposition home or self-care (01) ==
LOC: ER 14:38
DX: T17.228A Food in pharynx causing other injury, initial encounter (principal); X58.XXXA Exposure to other specified factors, initial encounter; R12 Heartburn; R10.811 Right upper quadrant abdominal tenderness; R11.10 Vomiting, unspecified; Z88.0 Allergy status to penicillin; Z88.3 Allergy status to other anti-infective agents; Z87.891 Personal history of nicotine dependence
CPT/HCPCS: 99283; 96374; 36415; 85025; 80053; 70491; J1610; J3490

== ENCOUNTER 2020-07-01 18:14 | Emergency (ER) | payer OTHER ==
[2020-07-01] MEDS ORDERED: MORPHINE SULFATE 10 MG/ML INJ IV ONE (18:37)
[2020-07-01] MEDS ORDERED: ONDANSETRON HCL INJ/PF 4 MG/2 ML SDV IV ONE (18:37)
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
[2020-07-01 19:15] LABS: ABSOLUTE EOSINOPHILS # (AUTO) 0.2 10^3/uL (0.0-0.6); ABSOLUTE LYMPHOCYTES (AUTO) 3.4 10^3/uL (0.5-4.7); ABSOLUTE MONOCYTES (AUTO) 0.4 10^3/uL (0.1-1.4); ABSOLUTE NEUT (AUTO) 4.3 10^3/uL (1.7-8.2); BASOPHILS % (AUTO) 0.5 % (0-2); EOSINOPHILS % (AUTO) 2.4 % (0-6); HEMATOCRIT 35.9 % (36.0-47.0); HEMOGLOBIN 12.4 g/dL (12.0-15.5); LYMPHOCYTES % (AUTO) 40.7 % (13-45); MEAN CORPUSCULAR HEMOGLOBIN 30.6 pg (27.0-33.4); MEAN CORPUSCULAR HGB CONC 34.6 g/dL (32.0-36.0); MEAN CORPUSCULAR VOLUME 88 fl (80-97); MONOCYTES % (AUTO) 4.7 % (3-13); PLATELET COUNT 275 10^3/uL (150-450); RED BLOOD COUNT 4.06 10^6/uL (3.72-5.28); RED CELL DISTRIBUTION WIDTH 13.4 % (11.5-14.0); SEGMENTED NEUTROPHILS % (AUTO) 51.7 % (42-78); TOTAL CELLS COUNTED % (AUTO) 100 %; WHITE BLOOD COUNT 8.3 10^3/uL (4.0-10.5)
[2020-07-01 19:34] LABS: ALBUMIN 4.1 g/dL (3.5-5.0); ALKALINE PHOSPHATASE 76 U/L (38-126); ANION GAP 8 (5-19); ASPARTATE AMINO TRANSFERASE 24 U/L (14-36); BILIRUBIN,DIRECT 0.2 mg/dL (0.0-0.4); BILIRUBIN,TOTAL 0.6 mg/dL (0.2-1.3); BLOOD UREA NITROGEN 16 mg/dL (7-20); CALCIUM 8.9 mg/dL (8.4-10.2); CARBON DIOXIDE 31 mmol/L (22-30); CHLORIDE 102 mmol/L (98-107); GLUCOSE 98 mg/dL (75-110); POTASSIUM 3.9 mmol/L (3.6-5.0); TOTAL PROTEIN 7.5 g/dL (6.3-8.2)
--- NOTE | 2020-07-01 20:49 | RADIOLOGY REPORT (SQ) ---
CT CHEST, ABDOMEN, AND PELVIS HISTORY: Trauma. COMPARISON: None. TECHNIQUE: CT scan of the chest, abdomen, and pelvis was performed with IV contrast. This exam was performed according to our departmental dose-optimization program, which includes automated exposure control, adjustment of the mA and/or kV according to patient size and/or use of iterative reconstruction technique. FINDINGS: CHEST: The heart size is normal without pericardial effusion. The thoracic aorta is normal caliber.. No mediastinal hematoma is seen. No pulmonary contusion, pleural effusion, or pneumothorax. ABDOMEN/PELVIS: There has been a prior cholecystectomy, hysterectomy, and appendectomy. There is a small cyst in the right hepatic lobe. The remaining abdominal and pelvic solid and hollow viscus organs are grossly unremarkable without evidence of acute findings. No intraperitoneal free fluid or free air is seen. The abdominal aorta is normal caliber. MUSCULOSKELETAL: No acute fracture of the thoracolumbar spine. The bony pelvis is intact. No rib fractures are seen. The sternum is also intact. No body wall soft tissue contusion or hematoma. IMPRESSION: 1. No evidence of solid or hollow viscus injury. 2. No acute fracture or subluxation of the thoracolumbar spine.
[2020-07-01] MEDS ORDERED: OXYCODONE-ACETAMINOPHEN 5-325 MG TABLET PO ONE (21:15)
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
[2020-07-01 22:05] VITALS: BP 138/74
== END 2020-07-01 22:02 | disposition home or self-care (01) ==
LOC: ER 18:14
DX: S30.1XXA Contusion of abdominal wall, initial encounter (principal); S20.219A Contusion of unspecified front wall of thorax, initial encounter; R10.11 Right upper quadrant pain; V44.5XXA Car driver injured in collision with heavy transport vehicle or bus in traffic accident, initial encounter; F32.9 Major depressive disorder, single episode, unspecified; Z79.899 Other long term (current) drug therapy; Z79.891 Long term (current) use of opiate analgesic; Z88.0 Allergy status to penicillin; Z88.3 Allergy status to other anti-infective agents
CPT/HCPCS: 99285; 96374; 96375; 36415; 85025; 85730; 80053; 71260; 74177; J2270; J2405